=== PATIENT | female | born 1950 | race Caucasian/White ===

== ENCOUNTER 2017-12-01 08:00 | Outpatient (CLI) | payer MEDICARE, OTHER ==
[2017-12-01 12:38] LABS: BASOPHILS # (AUTO) 0.1 10^3/uL (0.0-0.1); BASOPHILS % (AUTO) 0.9 %; EOSINOPHILS # (AUTO) 0.1 10^3/uL (0.0-0.7); EOSINOPHILS % (AUTO) 1.1 %; HGB - HEMOGLOBIN 15.4 g/dL (12.0-16.0); LYMPHOCYTES # (AUTO) 2.8 10^3/uL (1.5-3.5); LYMPHOCYTES % (AUTO) 37.3 %; MEAN CORPUSCULAR HEMOGLOBIN 31.3 pg (27.0-31.0); MEAN PLATELET VOLUME 9.3 fL (7.9-10.8); MONOCYTES # (AUTO) 0.5 10^3/uL (0.0-1.0); NEUTROPHILS % (AUTO) 53.7 %; PLT - PLATELET COUNT 263 10^3/uL (130-450); RED CELL DISTRIBUTION WIDTH 13.5 % (12.0-15.0); WHITE BLOOD COUNT 7.4 x10^3/uL (4.8-10.8)
[2017-12-01 12:45] LABS: CALCIUM 9.9 mg/dL (8.5-10.3)
[2017-12-01 13:01] LABS: ALBUMIN 4.3 g/dL (3.2-5.5); ALBUMIN/GLOBULIN RATIO 1.4 (1.0-2.2); BILIRUBIN,TOTAL 0.3 mg/dL (0.2-1.0); CREATININE 0.6 mg/dL (0.4-1.0); TOTAL PROTEIN 7.4 g/dL (6.7-8.2)
[2017-12-01 13:28] LABS: HB2 TOTAL 16.2 g/dL; HEMOGLOBIN A1C 0.8 g/dL; HEMOGLOBIN A1C % 6.7 % (4.6-6.2)
== END 2017-12-01 08:01 | disposition home or self-care (01) ==
LOC: LAB.WCP 08:00
PROVIDERS: ATTEND Family Medicine
DX: E11.40 Type 2 diabetes mellitus with diabetic neuropathy, unspecified (principal); F31.9 Bipolar disorder, unspecified; E03.9 Hypothyroidism, unspecified
CPT/HCPCS: 36415; 80053; 82043; 83036; 84443; 85025

== ENCOUNTER 2017-12-15 12:58 | Outpatient (CLI) | payer MEDICARE, OTHER ==
--- NOTE | 2017-12-15 15:57 | XRAY Report ---
Procedure Date: 12/15/2017 Accession Number: [id number] / [id number] Procedure: XR - Lumbar Spine 2 View CPT Code: FULL RESULT: EXAM: Lumbar Spine 2 View DATE: 12/15/2017 1:36 PM CLINICAL HISTORY: LOWER BACK PAIN COMPARISON: None. TECHNIQUE: 2 views. FINDINGS: Alignment: There is S-shaped scoliosis. Mild thoracolumbar levoconvex scoliosis followed by severe lumbar dextroscoliosis centered about L3 where there is partial loss of height of L3 laterally on the left. Bones: Five [id number] lumbar vertebral bodies are present. No aggressive osseous lesions. Disks: There is multilevel degenerative disc disease which is most pronounced at L3-4, L4-5 and L5-S1. Facets: Facet arthropathy is most pronounced at L4 and L5 levels. Sacroiliac Joints: Limited by technique and positioning. Within these limits, unremarkable. Soft Tissues: Normal. The visualized bowel gas pattern is normal. IMPRESSION: Marked degenerative thoracolumbar S-shaped scoliosis. RADIA
== END 2017-12-15 12:59 | disposition home or self-care (01) ==
LOC: DI 12:58
PROVIDERS: ATTEND Family Medicine
DX: M41.85 Other forms of scoliosis, thoracolumbar region (principal); M51.37 Other intervertebral disc degeneration, lumbosacral region
CPT/HCPCS: 72100

== ENCOUNTER 2018-03-21 09:59 | Outpatient (CLI) | payer MEDICARE, OTHER ==
[2018-03-21 12:22] LABS: BASOPHILS % (AUTO) 0.8 %; EOSINOPHILS # (AUTO) 0.1 10^3/uL (0.0-0.7); EOSINOPHILS % (AUTO) 1.8 %; HGB - HEMOGLOBIN 15.2 g/dL (12.0-16.0); LYMPHOCYTES # (AUTO) 3.4 10^3/uL (1.5-3.5); LYMPHOCYTES % (AUTO) 57.7 %; MEAN CORPUSCULAR HEMOGLOBIN 32.1 pg (27.0-31.0); MEAN CORPUSCULAR HGB CONC 33.5 g/dL (32.0-36.0); MEAN PLATELET VOLUME 9.1 fL (7.9-10.8); MONOCYTES # (AUTO) 0.4 10^3/uL (0.0-1.0); MONOCYTES % (AUTO) 6.4 %; NEUTROPHILS # (AUTO) 1.9 10^3/uL (1.5-6.6); NEUTROPHILS % (AUTO) 33.3 %; PLT - PLATELET COUNT 251 10^3/uL (130-450); RED BLOOD COUNT 4.72 10^6/uL (4.20-5.40); RED CELL DISTRIBUTION WIDTH 14.1 % (12.0-15.0); WHITE BLOOD COUNT 5.8 x10^3/uL (4.8-10.8)
[2018-03-21 13:05] LABS: ALBUMIN 4.1 g/dL (3.2-5.5); ALBUMIN/GLOBULIN RATIO 1.4 (1.0-2.2); BILIRUBIN,TOTAL 0.6 mg/dL (0.2-1.0); CREATININE 0.7 mg/dL (0.4-1.0); TOTAL PROTEIN 7.1 g/dL (6.7-8.2)
[2018-03-21 13:09] LABS: THYROID STIMULATING HORMONE 1.11 uIU/mL (0.34-5.60)
[2018-03-21 13:15] LABS: CALCIUM 9.5 mg/dL (8.5-10.3)
== END 2018-03-21 10:00 | disposition home or self-care (01) ==
LOC: LAB.WCP 09:59
PROVIDERS: ATTEND Family Medicine
DX: R41.3 Other amnesia (principal)
CPT/HCPCS: 36415; 80053; 82607; 84443; 85025

== ENCOUNTER 2018-04-08 16:14 | Outpatient (CLI) | payer MEDICARE, OTHER ==
--- NOTE | 2018-04-08 19:44 | MRI Report ---
Reason: MEMORY LOSS Procedure Date: 04/08/2018 Accession Number: [id number] / [id number] Procedure: MRI - Brain W/O CPT Code: FULL RESULT: EXAM: MRI BRAIN WITHOUT CONTRAST EXAM DATE: 04/08/2018 04:54 PM. CLINICAL HISTORY: MEMORY LOSS. COMPARISON: None. TECHNIQUE: Multiplanar, multisequence T1-weighted and fluid-sensitive MR sequences of the brain were performed. Sequences optimized for routine evaluation. Other: None. IV Contrast: None. FINDINGS: Brain Volume: Normal for age. Parenchyma/Dura: No acute parenchymal hemorrhage, mass, or midline shift. There is mild bilateral ill-defined areas of T2/flair signal hyperintensity seen. There are no areas of restricted diffusion seen to suggest acute infarct. There are no abnormal areas of hemosiderin deposition. Ventricles/Cisterns: No hydrocephalus. No abnormal extra-axial fluid collection or hemorrhage. Orbits: Symmetric and unremarkable. Sella Turcica: The pituitary gland, cavernous sinuses, suprasellar cistern and optic chiasm are unremarkable. IAC: Symmetric and unremarkable. Vasculature: Normal signal flow void is seen in the major arterial structures at the skull base. Sinuses: No acute appearing sinus disease. Bones: No focal pathologic appearing marrow signal changes. Other: None. IMPRESSION: 1. No definite acute intracranial pathology seen; specifically, no acute infarct, acute intracranial hemorrhage, mass, hydrocephalus, or midline shift. 2. Mild white matter changes seen that are nonspecific, but may represent sequela of chronic small vessel ischemic disease. RADIA
== END 2018-04-08 16:15 | disposition home or self-care (01) ==
LOC: DI 16:14
PROVIDERS: ATTEND Family Medicine
DX: R41.3 Other amnesia (principal)
CPT/HCPCS: 70551

== ENCOUNTER 2018-06-01 08:00 | Outpatient (CLI) | payer MEDICARE, OTHER ==
[2018-06-01 19:13] LABS: CALCIUM 9.9 mg/dL (8.5-10.3); CREATININE 0.7 mg/dL (0.4-1.0)
[2018-06-01 19:25] LABS: HB2 TOTAL 16.6 g/dL; HEMOGLOBIN A1C 0.8 g/dL; HEMOGLOBIN A1C % 6.6 % (4.6-6.2)
== END 2018-06-01 23:59 | disposition home or self-care (01) ==
LOC: LAB.WCP 08:00
PROVIDERS: ATTEND Family Medicine
DX: E11.9 Type 2 diabetes mellitus without complications (principal)
CPT/HCPCS: 36415; 80048; 82043; 83036

== ENCOUNTER 2018-10-12 08:00 | Outpatient (CLI) | payer MEDICARE, OTHER ==
[2018-10-12 19:35] LABS: HB2 TOTAL 15.5 g/dL; HEMOGLOBIN A1C 0.73 g/dL; HEMOGLOBIN A1C % 6.5 % (4.6-6.2)
== END 2018-10-12 23:59 | disposition home or self-care (01) ==
LOC: LAB.WCP 08:00
PROVIDERS: ATTEND Family Medicine
DX: E11.9 Type 2 diabetes mellitus without complications (principal)
CPT/HCPCS: 36415; 83036

== ENCOUNTER 2019-07-04 11:45 | Outpatient (CLI) | payer MEDICARE, OTHER ==
[2019-07-04 18:41] LABS: HB2 TOTAL 14.4 g/dL; HEMOGLOBIN A1C 0.63 g/dL; HEMOGLOBIN A1C % 6.2 % (4.6-6.2)
== END 2019-07-04 23:59 | disposition home or self-care (01) ==
LOC: LAB.N 11:45
PROVIDERS: ATTEND Family Medicine
DX: E11.9 Type 2 diabetes mellitus without complications (principal); E03.9 Hypothyroidism, unspecified
CPT/HCPCS: 36415; 83036; 84443

== ENCOUNTER 2019-07-09 12:14 | Outpatient (CLI) | payer MEDICARE, OTHER | END 2019-07-09 12:15 | disposition home or self-care (01) | LOC: DI 12:14 | PROVIDERS: ATTEND Internal Medicine Hematology & Oncology | DX: Z53.9 Procedure and treatment not carried out, unspecified reason (principal) ==

== ENCOUNTER 2019-08-01 13:35 | Outpatient (CLI) | payer MEDICARE, OTHER ==
--- NOTE | 2019-08-01 14:26 | XRAY Report ---
Reason: RIGHT HIP JOINT PAIN Procedure Date: 08/01/2019 Accession Number: [id number] / [id number] Procedure: XRN - Hip w/Pelvis 2-3V RT CPT Code: Final Report FULL RESULT: EXAM: RIGHT HIP RADIOGRAPHY EXAM DATE: 08/01/2019 01:55 PM. CLINICAL HISTORY: Right hip joint pain. COMPARISON: None. TECHNIQUE: 2 views. FINDINGS: Minimal narrowing at the right hip joint space, mild osteophytic spurring of the cephalad aspect of the acetabulum. No fracture or subluxation. No dislocation. The imaged portion of the right sacroiliac joint appears within normal limits. Minimally imaged moderate degenerative changes of the lower lumbar spine. IMPRESSION: Mild degenerative changes at the right hip. RADIA
== END 2019-08-01 13:36 | disposition home or self-care (01) ==
LOC: DI.N 13:35
PROVIDERS: ATTEND Family Medicine
DX: M16.11 Unilateral primary osteoarthritis, right hip (principal)

== ENCOUNTER 2019-10-01 08:00 | Outpatient (CLI) | payer MEDICARE, OTHER | END 2019-10-01 23:59 | disposition home or self-care (01) | LOC: LAB.WCP 08:00 | PROVIDERS: ATTEND Family Medicine | DX: E53.8 Deficiency of other specified B group vitamins (principal) | CPT/HCPCS: 36415; 82607 ==

== ENCOUNTER 2019-10-23 11:29 | Outpatient (CLI) | payer MEDICARE, OTHER ==
--- NOTE | 2019-10-23 12:29 | SLEEP CARE CONSULTATION ---
Information from patient questionnaire entered by Maggie Ruiz. I have reviewed and concur with the information entered by Maggie Ruiz. This document represents the service I personally performed and the decisions made by me, Celia Rivas MD, [facility]. History of Present Illness Service Date and Time: 10/23/2019 1129 Reason for Visit: New patient, Previously diagnosed sleep apnea, sleep apnea on CPAP therapy (BIPAP) Chief Complaint: reports: Insomnia, Snoring, Observed pauses in breathing, Other (new Bipap machine) Duration of Symptoms: since 1994 Usual bedtime: 11 pm - 12 am Time it takes to fall asleep: 30 minutes Snores at night: Yes (if not using Bipap) Observed to quit breathing while asleep: Yes Sleeps alone due to snoring: No Number of times waking at night: 1 Reasons for waking at night: reports: Bathroom Toss, Turn, or Twitch while sleeping: No Recalls having dreams: No Usually gets out of bed at: 9:30 am Feels refreshed in the morning: Yes Morning headache: No Sleepy or fatigued during the day: Yes (sometimes) Ever fallen asleep while driving: No Takes day naps: Yes Dreams during day naps: No Prior sleep studies: Yes Year and Where: 16 years ago Additional HPI information: I had the pleasure of seeing Ms. Jenkins today regarding obstructive sleep apnea- hypopnea. As you know, she is a 68 year old lady who was diagnosed with the sleep-disordered breathing over 20 years ago in [place], [place]. The sleep study report is not available. She was prescribed with a BiPAP and has been using it regularly since. She is still on her original BiPAP machine. It is set somewhere around 12/4 cmH2O. She said Medicare paid for it. She continues to get supplies from [employer]. She wears a nasal mask. The credit card type memory card can no longer be downloaded. She finds the treatment very beneficial. She can hardly sleep without it. - Parasomnia Symptoms Ever been unable to move upon waking from sleep: No Ever felt weak in the knees when startled or emotional: No Bothered by creepy, crawly, restless sensations in legs: No Problems with memory or concentration: Yes Subjective Initial [place] Sleepiness Scale score: 6 (in 2019) Past Medical History Past Medical History: reports: Hypertension, Diabetes, Hypothyroidism, Anxiety, Asthma, Depression, Mood disorder, Other (bipolar, blood disorder, sleep apnea) Social History The patient's occupation is a Retired. Patient is and lives in [place]. Have you smoked in the past 12 months: No Cigarettes per day (20/pack): 20 Years of smokin Quit date: 2001 Smoking Pack Years: 20.0 Alcohol use: No Caffeine use: Yes Family History Family history of sleep disordered breathing: Yes Allergies and Home Medications Drug allergies reviewed: Yes Home medication list reviewed: Yes Review of Systems Weight gain over past 5 years: 10 Weight loss over past 5 years: 26 Cardiovascular: reports: leg or foot swelling Respiratory: reports: shortness of breath Gastrointestinal: denies: heartburn, difficulty swallowing, nausea, vomitting, diarrhea, abdominal pain, other Urinary: denies: incontinence, frequency, urgency, impotence, other Neurological: reports: gait or balance problems Psychiatric: reports: anxiety, depression, mood disorder, claustrophobia Ear/Nose/Throat: reports: dry mouth/throat, tonsillectomy Endocrine: reports: thyroid disease Musculoskeletal: reports: joint pain, back pain, muscle pain or cramping, mobility problems Immunologic: reports: allergies to food or environment Physical Exam Vital signs obtained and entered by: Detailed physical exam is deferred because the Coronavirus epidemic. Height: 5 ft 5 in Weight: 245 lb Body Mass Index: 40.7 BMI Classification: Morbidly Obese Neck circumference: 16.5 Impression and Plan IMPRESSION: 1. Obstructive Sleep Apnea-Hypopnea Syndrome, of unknown severity, as previously diagnosed over 20 years ago. The patient appears to have good treatment compliance. The current pressure setting appears effective and comfortable. The patient experiences improvement on the treatment. Narrow oropharynx and obesity are common predisposing factors for obstructive sleep apnea-hypopnea syndrome. Because the CPAP is now older than the useful life of 5 years, I will order the patient a new one. However, without a sleep study report and treatment compliance, we will need to repeat the in-laboratory polysomnography to confirm the diagnosis. A manual CPAP/BiPAP titration study will also be necessary because the patient would like to continue with BiPAP rather than CPAP (Medicare wants to see that CPAP is ineffective before covering the more expensive BiPAP). Plan: 1. Schedule an in-laboratory polysomnography. Because she cannot sleep without using her BiPAP, I will let her use it all the way up to the sleep study. 2. Attempt to lose weight. 3. Return for follow up after the sleep study. Visit Type: In Office Time Spent with Patient (minutes): 15 Provider Statement: I spent 100% of the Face to Face Visit with the patient with greater than 50% spent counseling the patient and coordination of care.
== END 2019-10-23 11:30 | disposition home or self-care (01) ==
LOC: SC 11:29
PROVIDERS: ATTEND Internal Medicine Pulmonary Disease
DX: G47.33 Obstructive sleep apnea (adult) (pediatric) (principal); E66.01 Morbid (severe) obesity due to excess calories; Z68.41 Body mass index [BMI] 40.0-44.9, adult
CPT/HCPCS: 99203; G0463; 99212

== ENCOUNTER 2019-11-11 19:36 | Outpatient (CLI) | payer MEDICARE, OTHER | END 2019-11-11 19:37 | disposition home or self-care (01) | LOC: SC 19:36 | PROVIDERS: ATTEND Internal Medicine Pulmonary Disease | DX: R09.02 Hypoxemia (principal) | CPT/HCPCS: 95810 ==

== ENCOUNTER 2019-11-20 10:51 | Emergency (ER) | payer MEDICARE, OTHER ==
[2019-11-20 12:46] LABS: BASOPHILS % (AUTO) 0.3 %; EOSINOPHILS # (AUTO) 0.4 10^3/uL (0.0-0.7); EOSINOPHILS % (AUTO) 3.6 %; HGB - HEMOGLOBIN 16.2 g/dL (12.0-16.0); LYMPHOCYTES # (AUTO) 1.7 10^3/uL (1.5-3.5); LYMPHOCYTES % (AUTO) 17.1 %; MEAN CORPUSCULAR HEMOGLOBIN 32.3 pg (27.0-31.0); MEAN CORPUSCULAR HGB CONC 33.4 g/dL (32.0-36.0); MEAN CORPUSCULAR VOLUME 96.6 fL (81.0-99.0); MEAN PLATELET VOLUME 10.5 fL (7.9-10.8); MONOCYTES % (AUTO) 10.3 %; NEUTROPHILS # (AUTO) 6.8 10^3/uL (1.5-6.6); NEUTROPHILS % (AUTO) 68.2 %; PLT - PLATELET COUNT 300 10^3/uL (130-450); RED BLOOD COUNT 5.02 10^6/uL (4.20-5.40); RED CELL DISTRIBUTION WIDTH 13.5 % (12.0-15.0)
[2019-11-20] MEDS ORDERED: SODIUM CHLORIDE 0.9% 1,000 ML IV STA (12:50)
[2019-11-20] MEDS ORDERED: ONDANSETRON 4 MG/2 ML VIAL IVP STA (12:50)
[2019-11-20 12:51] LABS: GLUCOSE, URINE (UA) NEGATIVE (NEGATIVE); KETONES,URINE (UA) NEGATIVE (NEGATIVE); LEUKOCYTE ESTERASE, URINE NEGATIVE (NEGATIVE); NITRITE,URINE NEGATIVE (NEGATIVE); OCCULT BLOOD,URINE NEGATIVE (NEGATIVE); PH,URINE 5.5 PH (5.0-7.5); PROTEIN,URINE NEGATIVE (NEGATIVE); UROBILINOGEN,URINE 0.2 (NORMAL) E.U./dL (NORMAL)
--- NOTE | 2019-11-20 12:52 | ED Physician Documentation ---
History of Present Illness - Stated complaint Stated Complaint: VOMITING, ABD PX - Chief complaint Chief Complaint: Abd Pain - History obtained from History obtained from: Patient - History of Present Illness Timing: Prior to arrival, How many hours ago (16) Pain level max: 8 Pain level now: 4 - Additonal information Additional information: 68-year-old female presents to the emergency department with a chief complaint of uncontrolled vomiting. Began about 8:00 last night. Patient reports that she vomited almost continuously for about 6 hours.She denies that she has had any diarrhea or fevers. She wonders if it was some food that she ate over the holiday weekend. She states that at the end of her vomiting episode she was having some blood tinged and green emesis.Surgical history includes tubal ligation only. Patient retains her gallbladder and appendix. She denies any chest pain or dyspnea. no dysuria Review of Systems Constitutional: denies: Fever, Chills Cardiac: denies: Chest pain / pressure, Palpitations, Calf pain Respiratory: denies: Dyspnea, Cough GI: reports: Abdominal Pain, Nausea, Vomiting. denies: Constipation, Diarrhea, Hematemesis, Bloody / black stool : denies: Dysuria Skin: denies: Rash, Lesions Neurologic: denies: Generalized weakness, Focal weakness PD PAST MEDICAL HISTORY - Past Medical History Cardiovascular: None Respiratory: Asthma Neuro: Tremors, Other Endocrine/Autoimmune: Type 2 diabetes GI: Chronic constipation : None HEENT: None Psych: Depression, Bipolar disorder, Other Musculoskeletal: Osteoarthritis, Chronic back pain, Other Derm: Other - Past Surgical History HEENT: Tonsil/Adenoidectomy - Present Medications Home Medications: Ambulatory Orders Medication Instructions Recorded Confirmed ARIPiprazole [Aripiprazole] 1 tab ORAL DAILY 02/08/18 07/23/19 Dulaglutide [Trulicity] 1 mg IM UD 02/08/18 07/23/19 Lamotrigine [Lamotrigine ER] 1 tab ORAL BID 02/08/18 07/23/19 Levothyroxine [Synthroid] 1 tab ORAL DAILY 02/08/18 07/23/19 Multivitamin [Multiple Vitamins] 1 tab ORAL DAILY 02/08/18 07/23/19 Naproxen Sodium [Aleve] 1 tab ORAL DAILY 02/08/18 07/23/19 OLANZapine [Olanzapine] 3 tab ORAL TID 02/08/18 07/23/19 Psyllium Husk [Fiber] 1 tab ORAL DAILY 02/08/18 07/23/19 QUEtiapine [SEROquel] 3 tab ORAL DAILY 02/08/18 07/23/19 Ramipril 1 tab ORAL DAILY 02/08/18 07/23/19 Simvastatin 1 tab ORAL DAILY 02/08/18 07/23/19 Temazepam [Restoril] 1 tab ORAL DAILY 02/08/18 07/23/19 metFORMIN [Glucophage] 2 tab ORAL BID 02/08/18 07/23/19 Cyanocobalamin (Vitamin B-12) 1 ml IM Q7D 07/23/19 07/23/19 [B-12] Ondansetron Odt [Zofran] 4 mg TL Q6H PRN #10 tablet 11/20/19 - Allergies Allergies/Adverse Reactions: Allergies Allergy/AdvReac Type Severity Reaction Status Date / Time acetaminophen [From Vicodin] Allergy Rash Verified 11/20/19 11:05 azidocillin Allergy Nausea Verified 11/20/19 11:05 hydrocodone [From Vicodin] Allergy Rash Verified 11/20/19 11:05 meperidine [From Demerol] Allergy Respiratory Verified 11/20/19 11:05 Penicillins Allergy Nausea Verified 11/20/19 11:05 Sulfa (Sulfonamide Allergy Hives Verified 11/20/19 11:05 Antibiotics) PD ED PE NORMAL - General General: Alert and oriented X 3, No acute distress, Well developed/nourished - HEENT HEENT: PERRL, EOMI - Cardiac Cardiac: RRR, No murmur - Respiratory Respiratory: No respiratory distress, Clear bilaterally - Abdomen Abdomen: Normal bowel sounds. No: Non tender (Mildly tender upper epigastrium. Negative Vasquez's, negative McBurney's. No rebound or guarding) - Derm Derm: Normal color, Warm and dry, No rash - Extremities Extremities: No: No deformity, Normal ROM s pain - Neuro Neuro: Alert and oriented X 3, lead python developer 2-12 intact, No motor deficit, No sensory deficit Eye Opening: To Voice Motor: Obeys Commands Verbal: Oriented GCS Score: 14 Results - Vitals Vitals: Vital Signs - 24 hr 11/20/19 11/20/19 11/20/19 11:05 11:08 13:14 Temperature 36.6 C 36.8 C Heart Rate 113 H 99 96 Respiratory 16 16 20 Rate Blood Pressure 134/83 H 134/87 H 118/68 O2 Saturation 93 95 95 Oxygen O2 Source Room air - Labs Labs: Laboratory Tests 11/20/19 11/20/19 11/20/19 12:30 12:30 12:43 WBC 10.0 RBC 5.02 Hgb 16.2 H Hct 48.5 H MCV 96.6 MCH 32.3 H MCHC 33.4 RDW 13.5 Plt Count 300 MPV 10.5 Neut # (Auto) 6.8 H Lymph # (Auto) 1.7 [place] # (Auto) 1.0 Eos # (Auto) 0.4 Baso # (Auto) 0.0 Absolute Nucleated RBC 0.00 Nucleated RBC % 0.0 Sodium 141 Potassium 4.3 Chloride 102 Carbon Dioxide 23 Anion Gap 16.0 H BUN 28 H Creatinine 1.4 H Estimated GFR (MDRD) 38 L Glucose 163 H Calcium 9.7 Total Bilirubin 0.4 AST 19 ALT 21 Alkaline Phosphatase 69 Total Protein 7.6 Albumin 4.5 Globulin 3.1 Albumin/Globulin Ratio 1.5 Lipase 48 Urine Color YELLOW Urine Clarity CLEAR Urine pH 5.5 Ur Specific Jack 1.015 Urine Protein NEGATIVE Urine Glucose (UA) NEGATIVE Urine Ketones NEGATIVE Urine Occult Blood NEGATIVE Urine Nitrite NEGATIVE Urine Bilirubin NEGATIVE Urine Urobilinogen 0.2 (NORMAL) Ur Leukocyte Esterase NEGATIVE Ur Microscopic Review NOT INDICATED Urine Culture Comments NOT INDICATED PD MEDICAL DECISION MAKING - ED course Complexity details: reviewed results, re-evaluated patient, considered differential, d/w patient ED course: 68-year-old female presents to the emergency department with chief complaint of acute onset uncontrolled vomiting that began last night that progressed to dry heaves this morning. - She had no focal abdominal pain no peritoneal signs and no guarding. - Full review of her labs indicate that she was mildly dehydrated with a creatinine 1.4 and elevated BUN. Her LFTs were normal and showed no signs of obstruction. - Patient was repleted with 1 L of IV fluids and given Compazine and Zofran. Following that she had good resolution of her nausea and was able to tolerate clear liquids. - Patient feels ready for discharge home. Will prescribe a limited amount of Z ofran.Improvement in her symptoms without fevers leukocytosis or focal abdominal pain I do not feel that emergent imaging is warranted at this time. Discussed at length emergent return precautions. Departure - Departure Disposition: 01 Home, Self Care Clinical Impression: Vomiting Qualifiers: Vomiting type: unspecified Vomiting Intractability: non-intractable Nausea presence: with nausea Qualified Code(s): R11.2 - Nausea with vomiting, unspecified Condition: Stable Instructions: Diet Clear Liquid Dc, ED Nausea Vomiting Follow-Up: BLAS GRACE MD [Primary Care Provider] - Prescriptions: Ondansetron Odt [Zofran] 4 mg TL Q6H PRN #10 tablet PRN Reason: Nausea / Vomiting Comments: Sarika glad that you are feeling better. Your labs today looked good and did not show signs of problems with your liver or gallbladder.They did show that you are probably a little bit dehydrated but I think this got better with the IV fluids we gave you. I have prescribed a little bit of Zofran to be used at home for the next few days to help with your nausea. If your symptoms worsen you develop suddenly severe, or different belly pain, especially if you have fevers, and please return immediately to the emergency department.
[2019-11-20 12:54] LABS: CLARITY,URINE CLEAR (CLEAR)
[2019-11-20 12:56] LABS: ALBUMIN 4.5 g/dL (3.2-5.5); ALBUMIN/GLOBULIN RATIO 1.5 (1.0-2.2); BILIRUBIN,TOTAL 0.4 mg/dL (0.2-1.0); CALCIUM 9.7 mg/dL (8.5-10.3); CREATININE 1.4 mg/dL (0.4-1.0); TOTAL PROTEIN 7.6 g/dL (6.7-8.2)
[2019-11-20 12:57] LABS: BILIRUBIN,URINE NEGATIVE (NEGATIVE); ICTOTEST,URINE NEGATIVE
[2019-11-20] MEDS ORDERED: PANTOPRAZOLE 40 MG VIAL IVP STA (13:43)
[2019-11-20] MEDS ORDERED: PROCHLORPERAZINE 10 MG/2 ML VIAL IVP STA (13:44)
[2019-11-20 15:16] VITALS: BP 112/57
== END 2019-11-20 15:27 | disposition home or self-care (01) ==
LOC: ED 10:51
DX: R11.2 Nausea with vomiting, unspecified (principal); E86.0 Dehydration; E11.9 Type 2 diabetes mellitus without complications; Z79.84 Long term (current) use of oral hypoglycemic drugs
CPT/HCPCS: 36415; 80053; 81001; 81003; 83690; 85025; 87086; 96361; 96374; 96375; 99283

== ENCOUNTER 2019-11-28 15:45 | Outpatient (CLI) | payer MEDICARE, OTHER ==
--- NOTE | 2019-11-28 17:31 | SLEEP CARE CONSULTATION ---
Information from patient questionnaire entered by Maggie Ruiz. I have reviewed and concur with the information entered by Maggie Ruiz. This document represents the service I personally performed and the decisions made by me, Livier Gardner, RN, MSN, [employer]. History of Present Illness Service Date and Time: 11/28/2019 1545 Initial [place] Sleepiness Scale score: 6 (in 2019) Current [place] Sleepiness Scale score: 1 Additional HPI information: ERIKA WILDER returns for follow up and results of the recently performed polysomnography. I explained the pathophysiology behind obstructive sleep apnea. Patient does not have sleep apnea and was advised how weight gain could increase the risk of developing sleep apnea in the future. I strongly encouraged the patient to continue to lose weight. Patient has moderate to loud snoring. Snoring can be reduced by weight loss. Weight loss is best achieved with diet consult. Patient instructed to contact PCP for referral. Snoring can also be treated with an oral appliance from a dent ist. Advised to check insurance coverage. In addition, an ENT evaluation can be do to see if other treatment is indicated. Patient counseled not drink alcohol less than 4 hours before bedtime as it can increase snoring and apnea. Patient does not drink alcohol. Patient was cautioned about risks of drowsy driving until sleepiness symptoms resolve. Patient denies drowsy driving. Sleep Study - Results Type of Sleep Study: Polysomnography Polysomnography/Home Sleep Study results: The quality of the study is good. 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 The sleep architecture was normal. Respiratory monitoring showed no significant sleep disordered breathing (AHI = 0.2). There was mild hypoxia (codi oxygen saturation of 87% with time spent with oxygen saturation at or below 88% of 5.9 minutes) due to low baseline oxygen saturation. The patient slept adequately in supine position (supine AHI = 0.9; non-supine = 0.00). Snore was moderate to loud in intensity. There was no significant periodic leg movement of sleep. Cardiac rhythm was normal sinus rhythm without significant arrhythmia. No abnormal behavior (parasomnia) observed during the night. Allergies and Home Medications Known drug allergies: Yes (see list ) Home medication list reviewed: No (started wellbutrin 450mg daily with benefit. ) Review of Systems Review of systems same as previous: No (ER for recurrent emesis / Follow up with oncology for blood disorder. ) Physical Exam Cuff size: large Heart Rate: 76 O2 Saturation: 94 Height: 5 ft 5 in Weight: 245 lb Body Mass Index: 40.7 BMI Classification: Morbidly Obese Impression and Plan 1. Snoring, moderate to severe, but no significant sleep disordered breathing. Patient advised that often weight loss will reduce snoring as well as apnea risk. She has lost about 100 pounds the last few years with plans on losing 45 more pounds to a goal of 200 pounds. She was diagnosed with sleep apnea over 20 years ago when about 350 pounds and has been using BiPAP since and needed to replace unit. This study shows that she no longer has apnea that is probably due to her significant weight loss. I showed her her sleep study hypnogram and there was only 1 apnea the whole night. She is concerned about her snoring bothering her spouse. Thus I advised her that an oral appliance can also be used for snoring. This would require a dental consultation. Patient cautioned not to use other online appliances as can cause bite issues. Patient to check with her dentist if he does oral appliances and agreed with plan. Patient is advised to check if insurance will cover. An ENT consult can also be helpful to determine if any other treatment is an option and would require a referral from her PCP. 2. Hypoxemia, mild, due to low baseline oxygen saturation of 90%. Her lowest oxygen saturation was 87% with 5.9 minutes of oxygen less than 89%. Further marc luation of hypoxemia is recommended so patient advised to follow up with her PCP. This study may be used to qualify the patient for home oxygen therapy at night if clinically indicated. * Follow up with PCP for further evaluation of hypoxemia. * Continue to lose weight * Follow up with dentist to see if oral appliance an option for snoring. * Avoid alcohol consumption near bedtime - (does not drink) * The patient is cautioned about driving until sleepiness is completely resolved. * Return for follow up as needed. Visit Type: In Office Provider Statement: I spent 100% of the Face to Face Visit with the patient with greater than 50% spent counseling the patient and coordination of care.
== END 2019-11-28 15:46 | disposition home or self-care (01) ==
LOC: SC 15:45
PROVIDERS: ATTEND Nurse Practitioner Family
DX: R06.83 Snoring (principal); E66.01 Morbid (severe) obesity due to excess calories; Z68.41 Body mass index [BMI] 40.0-44.9, adult; R09.02 Hypoxemia
CPT/HCPCS: 99215; G0463; 99212

== ENCOUNTER 2019-12-01 01:22 | Outpatient (CLI) | payer MEDICARE, OTHER | END 2019-12-01 01:23 | disposition EMS.NT | LOC: EMS 01:22 | PROVIDERS: ATTEND Surgery | DX: Z03.89 Encounter for observation for other suspected diseases and conditions ruled out (principal) ==

== ENCOUNTER 2020-05-07 08:07 | Outpatient (CLI) | payer MEDICARE, OTHER ==
--- NOTE | 2020-05-07 15:41 | XRAY Report ---
PROCEDURE: Ribs w/PA Chest LT INDICATIONS: L RIB PX FOLLOWING A FALL TECHNIQUE: 3 views of the left ribs were acquired, along with a single view chest. COMPARISON: None FINDINGS: Surgical changes and devices: None. Bones and chest wall: No fractures or dislocations. No suspicious bony lesions. Overlying soft tis sues appear unremarkable. Lungs and pleura: No pleural effusions or pneumothorax. Lungs appear clear. Mediastinum: Mediastinal contours appear normal. Heart size is normal. IMPRESSION: No evidence of left-sided rib fracture, no pneumothorax seen. Please note that a nondisplaced rib fra cture may not be initially detected by plain film imaging. Subsequent delayed plain films may allow d etection of a rib fracture by callus formation, if clinically warranted. Reviewed by: Man Rice MD on 05/07/2020 3:39 PM PST Approved by: Man Rice MD on 05/07/2020 3:39 PM PST Station ID: [id number]
== END 2020-05-07 23:59 | disposition home or self-care (01) ==
LOC: DI.N 08:07
PROVIDERS: ATTEND Physician Assistant Medical
DX: S20.212A Contusion of left front wall of thorax, initial encounter (principal)

== ENCOUNTER 2020-06-26 08:00 | Outpatient (CLI) | payer MEDICARE, OTHER ==
[2020-06-26 12:36] LABS: HEMOGLOBIN A1c% 5.8 % (4.27-6.07)
[2020-06-26 12:37] LABS: CREATININE,URINE 65.8 mg/dL; MICROALBUM/CREATININE RATIO,UR 68.4 ug/mg (<30.0); MICROALBUMIN,URINE 4.5 mg/dL (0-300.0)
[2020-06-26 12:45] LABS: BUN - BLOOD UREA NITROGEN 16 mg/dL (6-20); CALCIUM 9.9 mg/dL (8.5-10.3); CARBON DIOXIDE - CO2 29 mmol/L (21-32); CHLORIDE 102 mmol/L (101-111); CHOL/HDL RATIO 3.2 (<4.4); CHOLESTEROL 173 mg/dL; CREATININE 0.9 mg/dL (0.4-1.0); GLUCOSE 122 mg/dL (70-100); HDL CHOLESTEROL 54 mg/dL; LDL CHOLESTEROL,CALCULATED 84 mg/dL; LDL/HDL RATIO 1.6 (<4.4); VLDL CHOLESTEROL 35 mg/dL
== END 2020-06-26 23:59 | disposition home or self-care (01) ==
LOC: LAB.WCP 08:00
PROVIDERS: ATTEND Internal Medicine
DX: E11.9 Type 2 diabetes mellitus without complications (principal); E03.9 Hypothyroidism, unspecified
CPT/HCPCS: 36415; 80048; 80061; 82043; 82570; 83036; 83721; 84443

== ENCOUNTER 2020-07-04 10:40 | Outpatient (CLI) | payer MEDICARE, OTHER ==
--- NOTE | 2020-07-04 16:45 | DEXA Report ---
PROCEDURE: Dexa Spine and/or Hip INDICATIONS: POST MENOPAUSAL TECHNIQUE: Dual energy x-ray absorptiometry (DXA) was performed on a [employer]. Regions measur ed are the AP Spine, femoral neck, and if needed forearm. COMPARISON: None. FINDINGS: Lumbar Spine: Bone Mineral Density 1.037 g/cm/cm,T score 0.2, normal Left Hip: Bone Mineral Density 1.037 g/cm/cm,T score 0.2, normal Left Femoral Neck: Bone Mineral Density 0.921 g/cm/cm, T score -0.8, normal (T score greater or equal to -1.0: NORMAL) (T score from -1.1 to -2.4: OSTEOPENIA) (T score less than or equal to -2.5 to: OSTEOPOROSIS) Impression: Normal bone marrow density. Patients with diagnosis of osteoporosis or osteopenia should have regular bone mineral density assess ment. For those eligible for Medicare, routine testing is allowed once every 2 years. Testing frequ ency can be increased for patients who have rapidly progressing disease or for those who are receivin g medical therapy to restore bone mass. Reviewed by: Ladonna Romero MD, PhD on 07/04/2020 4:43 PM PST Approved by: Ladonna Romero MD, PhD on 07/04/2020 4:43 PM PST Station ID: [id number]
== END 2020-07-04 10:41 | disposition home or self-care (01) ==
LOC: DI 10:40
PROVIDERS: ATTEND Internal Medicine
DX: Z78.0 Asymptomatic menopausal state (principal)

== ENCOUNTER 2020-08-19 13:07 | Outpatient (CLI) | payer MEDICARE, OTHER ==
--- NOTE | 2020-08-20 09:37 | Mammography Report ---
BILATERAL DIGITAL SCREENING MAMMOGRAM: 08/19/2020 CLINICAL: Routine screening. Comparison is made to exams dated: 02/06/2016 mammogram and 06/26/2012 mammogram - [facility]. There are scattered fibroglandular elements in both breasts. There are benign calcifications in both breasts. No significant masses, calcifications, or other findings are seen in either breast. There has been no significant interval change. IMPRESSION: BENIGN There is no mammographic evidence of malignancy. A 1 year screening mammogram is recommended. This exam was interpreted at Station ID: [id number]. NOTE: For mammograms, a report in lay terms will be sent to the patient. Approximately 15% of breast malignancies will not be visualized mammographically. In the management of a palpable breast mass, a negative mammogram must not discourage biopsy of a clinically suspicious lesion. Electronically Signed By: Niranjan Sweet M.D. ddp/penrad:08/19/2020 16:41:23 ACR BI-RADS Category 2: Benign Finding(s) 3342F PARENCHYMAL PATTERN: (A) - The breast(s) demonstrate(s) scattered fibroglandular densities. BI-RADS CATEGORY: (2) - 2 RECOMMENDATION: (ANNUAL) - Recommend routine annual screening mammography. [id number] 1 year screening LATERALITY: (B)
== END 2020-08-19 13:08 | disposition home or self-care (01) ==
LOC: DI.N 13:07
PROVIDERS: ATTEND Internal Medicine
DX: Z12.31 Encounter for screening mammogram for malignant neoplasm of breast (principal)

== ENCOUNTER 2020-11-18 08:00 | Outpatient (CLI) | payer MEDICARE, OTHER ==
[2020-11-18 15:00] LABS: THYROID STIMULATING HORMONE 1.5 uIU/mL (0.34-5.60)
[2020-11-18 15:06] LABS: BUN - BLOOD UREA NITROGEN 22 mg/dL (6-20); CALCIUM 9.4 mg/dL (8.5-10.3); CARBON DIOXIDE - CO2 26 mmol/L (21-32); CHLORIDE 104 mmol/L (101-111); CHOL/HDL RATIO 3.2 (<4.4); CHOLESTEROL 155 mg/dL; GFR - MDRD 55 (>89); GLUCOSE 124 mg/dL (70-100); HDL CHOLESTEROL 49 mg/dL; LDL CHOLESTEROL,CALCULATED 84 mg/dL; LDL/HDL RATIO 1.7 (<4.4); POTASSIUM 4.1 mmol/L (3.5-5.0); SODIUM 139 mmol/L (135-145); TRIGLYCERIDES 109 mg/dL; VLDL CHOLESTEROL 22 mg/dL
[2020-11-18 16:53] LABS: ESTIMATED AVERAGE GLUCOSE 120 mg/dL (70-100); HEMOGLOBIN A1c% 5.8 % (4.27-6.07)
== END 2020-11-18 23:59 | disposition home or self-care (01) ==
LOC: LAB.WCP 08:00
PROVIDERS: ATTEND Internal Medicine
DX: E11.9 Type 2 diabetes mellitus without complications (principal)
CPT/HCPCS: 36415; 80048; 80061; 83036; 83721; 84443

== ENCOUNTER 2020-11-26 08:00 | Outpatient (CLI) | payer MEDICARE, OTHER | END 2020-11-26 23:59 | disposition home or self-care (01) | LOC: LAB.WCP 08:00 | PROVIDERS: ATTEND Physician Assistant Medical | DX: E53.8 Deficiency of other specified B group vitamins (principal) | CPT/HCPCS: 36415; 82607 ==

== ENCOUNTER 2021-01-30 08:00 | Outpatient (CLI) | payer MEDICARE, OTHER ==
[2021-01-30 18:42] LABS: BASOPHILS % (AUTO) 0.6 %; EOSINOPHILS # (AUTO) 0.1 10^3/uL (0.0-0.7); EOSINOPHILS % (AUTO) 0.9 %; HCT - HEMATOCRIT 47.9 % (37.0-47.0); LYMPHOCYTES # (AUTO) 3.6 10^3/uL (1.5-3.5); MEAN CORPUSCULAR HEMOGLOBIN 31.9 pg (27.0-31.0); MEAN CORPUSCULAR HGB CONC 31.3 g/dL (32.0-36.0); MEAN CORPUSCULAR VOLUME 101.9 fL (81.0-99.0); MONOCYTES # (AUTO) 0.5 10^3/uL (0.0-1.0); MONOCYTES % (AUTO) 7.6 %; NEUTROPHILS # (AUTO) 2.4 10^3/uL (1.5-6.6); NEUTROPHILS % (AUTO) 36.6 %; PLT - PLATELET COUNT 261 10^3/uL (130-450); RED CELL DISTRIBUTION WIDTH 12.4 % (12.0-15.0); WHITE BLOOD COUNT 6.6 x10^3/uL (4.8-10.8)
[2021-01-30 20:21] LABS: ALBUMIN/GLOBULIN RATIO 1.3 (1.0-2.2); ALKALINE PHOSPHATASE 66 IU/L (42-121); ALT ALANINE AMINOTRANSFERASE 19 IU/L (10-60); AST ASPARTATE AMINOTRANSFERASE 15 IU/L (10-42); BILIRUBIN,TOTAL 0.6 mg/dL (0.2-1.0); BUN - BLOOD UREA NITROGEN 21 mg/dL (6-20); CALCIUM 9.5 mg/dL (8.5-10.3); CARBON DIOXIDE - CO2 31 mmol/L (21-32); CHLORIDE 98 mmol/L (101-111); CREATININE 0.9 mg/dL (0.4-1.0); GFR - MDRD 62 (>89); GLUCOSE 85 mg/dL (70-100); POTASSIUM 4.3 mmol/L (3.5-5.0); SODIUM 139 mmol/L (135-145); TOTAL PROTEIN 7.2 g/dL (6.7-8.2); VALPROIC ACID (DEPAKOTE) 60.8 ug/mL
== END 2021-01-30 23:59 | disposition home or self-care (01) ==
LOC: LAB.WCP 08:00
PROVIDERS: ATTEND Nurse Practitioner Psychiatric/Mental Health
DX: F31.32 Bipolar disorder, current episode depressed, moderate (principal)
CPT/HCPCS: 36415; 80053; 80164; 85025

== ENCOUNTER 2021-03-16 08:00 | Outpatient (CLI) | payer MEDICARE, OTHER ==
[2021-03-16 12:42] LABS: BUN - BLOOD UREA NITROGEN 27 mg/dL (6-20); CALCIUM 9.6 mg/dL (8.5-10.3); CARBON DIOXIDE - CO2 26 mmol/L (21-32); CHLORIDE 104 mmol/L (101-111); CHOL/HDL RATIO 3.3 (<4.4); CHOLESTEROL 179 mg/dL; CREATININE 1.1 mg/dL (0.4-1.0); GFR - MDRD 49 (>89); GLUCOSE 115 mg/dL (70-100); HDL CHOLESTEROL 54 mg/dL; LDL CHOLESTEROL,CALCULATED 84 mg/dL; LDL/HDL RATIO 1.6 (<4.4); POTASSIUM 4.3 mmol/L (3.5-5.0); SODIUM 141 mmol/L (135-145); TRIGLYCERIDES 206 mg/dL; VLDL CHOLESTEROL 41 mg/dL
[2021-03-16 12:46] LABS: ESTIMATED AVERAGE GLUCOSE 140 mg/dL (70-100); HEMOGLOBIN A1c% 6.5 % (4.27-6.07)
== END 2021-03-16 23:59 | disposition home or self-care (01) ==
LOC: LAB.WCP 08:00
PROVIDERS: ATTEND Physician Assistant Medical
DX: E11.9 Type 2 diabetes mellitus without complications (principal); E53.8 Deficiency of other specified B group vitamins
CPT/HCPCS: 36415; 80048; 80061; 82607; 83036; 83721

== ENCOUNTER 2021-04-20 10:15 | Outpatient (CLI) | payer MEDICARE, OTHER ==
--- NOTE | 2021-04-20 12:51 | XRAY Report ---
PROCEDURE: Ribs 2 View LT INDICATIONS: L SIDED RIB PX TECHNIQUE: 3 views of the left ribs were acquired. COMPARISON: May 07, 2020 FINDINGS: Surgical changes and devices: None. Bones and chest wall: Minimal displaced fracture of the left eighth rib. No suspicious bony lesions. Overlying soft tissues appear unremarkable. Lungs and pleura: The visualized lung appears clear. No pleural effusions or pneumothorax are visib le. IMPRESSION: 1. Minimal displaced fracture of the left eighth rib. Reviewed by: Joe Broderick MD on 04/20/2021 12:49 PM PST Approved by: Joe Broderick MD on 04/20/2021 12:49 PM PST Station ID: [id number]
== END 2021-04-20 13:00 ==
LOC: DI.N 10:15
PROVIDERS: ATTEND Family Medicine
DX: S22.32XA Fracture of one rib, left side, initial encounter for closed fracture (principal)

== ENCOUNTER 2021-06-12 15:53 | Outpatient (CLI) | payer MEDICARE, OTHER ==
--- NOTE | 2021-06-12 16:58 | XRAY Report ---
PROCEDURE: Ribs w/PA Chest LT INDICATIONS: LEFT RIB PAIN TECHNIQUE: 3 views of the left ribs were acquired, along with a single view chest. COMPARISON: 04/20/2021 FINDINGS: Surgical changes and devices: None. Bones and chest wall: Slightly displaced fracture involving left posterior lateral eighth rib is seen unchanged from prior study. No new rib fracture is noted. No suspicious bony lesions. Overlying sof t tissues appear unremarkable. Lungs and pleura: Blunting of left costophrenic angle is seen suggestive of trace left pleural effusi on. Lungs appear clear. Mediastinum: Mediastinal contours appear normal. Heart size is normal. IMPRESSION: Minimally displaced left posterior lateral eighth rib fracture with trace left pleural effusion. No p neumothorax. No new rib fracture. Reviewed by: Rishabh Flaherty MD on 06/12/2021 4:57 PM PST Approved by: Rishabh Flaherty MD on 06/12/2021 4:57 PM PST Station ID: [id number]
== END 2021-06-12 23:59 | disposition home or self-care (01) ==
LOC: DI.N 15:53
PROVIDERS: ATTEND Physician Assistant
DX: S22.32XA Fracture of one rib, left side, initial encounter for closed fracture (principal)

== ENCOUNTER 2021-07-20 14:47 | Outpatient (CLI) | payer MEDICARE, OTHER ==
[2021-07-20 18:55] LABS: BASOPHILS # (AUTO) 0.1 10^3/uL (0.0-0.1); BASOPHILS % (AUTO) 0.7 %; EOSINOPHILS # (AUTO) 0.1 10^3/uL (0.0-0.7); EOSINOPHILS % (AUTO) 0.9 %; HCT - HEMATOCRIT 44.8 % (37.0-47.0); HGB - HEMOGLOBIN 14.4 g/dL (12.0-16.0); LYMPHOCYTES # (AUTO) 3.3 10^3/uL (1.5-3.5); LYMPHOCYTES % (AUTO) 49.9 %; MEAN CORPUSCULAR HEMOGLOBIN 32.1 pg (27.0-31.0); MEAN CORPUSCULAR HGB CONC 32.1 g/dL (32.0-36.0); MEAN CORPUSCULAR VOLUME 99.8 fL (81.0-99.0); MEAN PLATELET VOLUME 11.7 fL (7.9-10.8); MONOCYTES # (AUTO) 0.7 10^3/uL (0.0-1.0); MONOCYTES % (AUTO) 9.7 %; NEUTROPHILS # (AUTO) 2.6 10^3/uL (1.5-6.6); NEUTROPHILS % (AUTO) 38.5 %; PLT - PLATELET COUNT 229 10^3/uL (130-450); RED BLOOD COUNT 4.49 10^6/uL (4.20-5.40); RED CELL DISTRIBUTION WIDTH 12.3 % (12.0-15.0); WHITE BLOOD COUNT 6.7 x10^3/uL (4.8-10.8)
[2021-07-20 19:48] LABS: ALBUMIN 3.9 g/dL (3.2-5.5); ALBUMIN/GLOBULIN RATIO 1.3 (1.0-2.2); ALKALINE PHOSPHATASE 57 IU/L (42-121); ALT ALANINE AMINOTRANSFERASE 25 IU/L (10-60); AST ASPARTATE AMINOTRANSFERASE 22 IU/L (10-42); BILIRUBIN,TOTAL 0.4 mg/dL (0.2-1.0); BUN - BLOOD UREA NITROGEN 30 mg/dL (6-20); CALCIUM 9.4 mg/dL (8.5-10.3); CARBON DIOXIDE - CO2 27 mmol/L (21-32); CHLORIDE 98 mmol/L (101-111); CREATININE 1.1 mg/dL (0.4-1.0); GFR - MDRD 49 (>89); GLUCOSE 96 mg/dL (70-100); POTASSIUM 4.8 mmol/L (3.5-5.0); SODIUM 137 mmol/L (135-145); TOTAL PROTEIN 6.8 g/dL (6.7-8.2); VALPROIC ACID (DEPAKOTE) 67.7 ug/mL
== END 2021-07-20 14:48 | disposition home or self-care (01) ==
LOC: LAB.N 14:47
PROVIDERS: ATTEND Psychiatry & Neurology Psychiatry
DX: F31.9 Bipolar disorder, unspecified (principal); Z79.899 Other long term (current) drug therapy
CPT/HCPCS: 36415; 80053; 80164; 85025

== ENCOUNTER 2021-08-25 08:46 | Outpatient (CLI) | payer MEDICARE, OTHER ==
[2021-08-25 12:21] LABS: BASOPHILS # (AUTO) 0.1 10^3/uL (0.0-0.1); BASOPHILS % (AUTO) 0.7 %; EOSINOPHILS # (AUTO) 0.1 10^3/uL (0.0-0.7); EOSINOPHILS % (AUTO) 1.4 %; HCT - HEMATOCRIT 43.3 % (37.0-47.0); HGB - HEMOGLOBIN 14.1 g/dL (12.0-16.0); LYMPHOCYTES # (AUTO) 4.1 10^3/uL (1.5-3.5); LYMPHOCYTES % (AUTO) 57.8 %; MEAN CORPUSCULAR HGB CONC 32.6 g/dL (32.0-36.0); MEAN CORPUSCULAR VOLUME 98.4 fL (81.0-99.0); MEAN PLATELET VOLUME 11.5 fL (7.9-10.8); MONOCYTES # (AUTO) 0.5 10^3/uL (0.0-1.0); MONOCYTES % (AUTO) 7.4 %; NEUTROPHILS # (AUTO) 2.3 10^3/uL (1.5-6.6); NEUTROPHILS % (AUTO) 32.4 %; PLT - PLATELET COUNT 229 10^3/uL (130-450); RED CELL DISTRIBUTION WIDTH 12.4 % (12.0-15.0)
[2021-08-25 12:33] LABS: BUN - BLOOD UREA NITROGEN 27 mg/dL (6-20); CALCIUM 9.4 mg/dL (8.5-10.3); CARBON DIOXIDE - CO2 29 mmol/L (21-32); CHLORIDE 99 mmol/L (101-111); CHOL/HDL RATIO 2.9 (<4.4); CHOLESTEROL 158 mg/dL; CREATININE 1.2 mg/dL (0.4-1.0); GFR - MDRD 45 (>89); GLUCOSE 159 mg/dL (70-100); HDL CHOLESTEROL 54 mg/dL; LDL CHOLESTEROL,CALCULATED 79 mg/dL; LDL/HDL RATIO 1.5 (<4.4); POTASSIUM 4.5 mmol/L (3.5-5.0); SODIUM 139 mmol/L (135-145); TRIGLYCERIDES 126 mg/dL; VALPROIC ACID (DEPAKOTE) 58.8 ug/mL; VLDL CHOLESTEROL 25 mg/dL
[2021-08-25 12:46] LABS: THYROID STIMULATING HORMONE 3.53 uIU/mL (0.34-5.60)
[2021-08-25 13:42] LABS: ESTIMATED AVERAGE GLUCOSE 148 mg/dL (70-100); HEMOGLOBIN A1c% 6.8 % (4.27-6.07)
== END 2021-08-25 08:47 | disposition home or self-care (01) ==
LOC: LAB.N 08:46
PROVIDERS: ATTEND Internal Medicine
DX: I10 Essential (primary) hypertension (principal); E11.9 Type 2 diabetes mellitus without complications; F31.9 Bipolar disorder, unspecified; E53.8 Deficiency of other specified B group vitamins; E03.9 Hypothyroidism, unspecified
CPT/HCPCS: 36415; 80048; 80061; 80164; 82607; 83036; 83721; 84443; 85025

== ENCOUNTER 2021-11-03 12:51 | Outpatient (CLI) | payer MEDICARE, OTHER ==
--- NOTE | 2021-11-04 07:54 | Mammography Report ---
BILATERAL DIGITAL SCREENING MAMMOGRAM: 11/03/2021 CLINICAL: Routine screening. Comparison is made to exams dated: 08/19/2020 mammogram - [facility], 02/06/2016 mamm ogram, and 06/26/2012 mammogram - [facility]. There are scattered fibroglandular eleme nts in both breasts. There are benign calcifications in both breasts. No significant masses, calcifications, or other findings are seen in either breast. There has been no significant interval change. IMPRESSION: BENIGN There is no mammographic evidence of malignancy. A 1 year screening mammogram is recommended. This exam was interpreted at Station ID: [id number]. NOTE: For mammograms, a report in lay terms will be sent to the patient. Approximately 15% of breast malignancies will not be visualized mammographically. In the management of a palpable breast mass, a negative mammogram must not discourage biopsy of a clinically suspicious lesion. Electronically Signed By: Tin Bess M.D. ar/penrad:11/03/2021 15:47:27 ACR BI-RADS Category 2: Benign Finding(s) 3342F PARENCHYMAL PATTERN: (A) - The breast(s) demonstrate(s) scattered fibroglandular densities. BI-RADS CATEGORY: (2) - 2 RECOMMENDATION: (ANNUAL) - Recommend routine annual screening mammography. [id number] 1 year screening LATERALITY: (B)
== END 2021-11-03 12:52 | disposition home or self-care (01) ==
LOC: DI.N 12:51
PROVIDERS: ATTEND Internal Medicine
DX: Z12.31 Encounter for screening mammogram for malignant neoplasm of breast (principal)

== ENCOUNTER 2021-12-15 09:37 | Outpatient (CLI) | payer MEDICARE, OTHER ==
[2021-12-15 12:49] LABS: BASOPHILS % (AUTO) 0.7 %; EOSINOPHILS # (AUTO) 0.1 10^3/uL (0.0-0.7); HCT - HEMATOCRIT 44.4 % (37.0-47.0); HGB - HEMOGLOBIN 14.5 g/dL (12.0-16.0); LYMPHOCYTES # (AUTO) 3.6 10^3/uL (1.5-3.5); LYMPHOCYTES % (AUTO) 60.9 %; MEAN CORPUSCULAR HEMOGLOBIN 32.2 pg (27.0-31.0); MEAN CORPUSCULAR HGB CONC 32.7 g/dL (32.0-36.0); MEAN CORPUSCULAR VOLUME 98.7 fL (81.0-99.0); MEAN PLATELET VOLUME 11.7 fL (7.9-10.8); MONOCYTES # (AUTO) 0.5 10^3/uL (0.0-1.0); MONOCYTES % (AUTO) 8.4 %; NEUTROPHILS # (AUTO) 1.7 10^3/uL (1.5-6.6); NEUTROPHILS % (AUTO) 28.7 %; PLT - PLATELET COUNT 220 10^3/uL (130-450); RED CELL DISTRIBUTION WIDTH 12.5 % (12.0-15.0); WHITE BLOOD COUNT 5.9 x10^3/uL (4.8-10.8)
[2021-12-15 13:08] LABS: ALBUMIN 3.7 g/dL (3.2-5.5); ALBUMIN/GLOBULIN RATIO 1.1 (1.0-2.2); ALKALINE PHOSPHATASE 61 IU/L (42-121); ALT ALANINE AMINOTRANSFERASE 14 IU/L (10-60); AST ASPARTATE AMINOTRANSFERASE 10 IU/L (10-42); BILIRUBIN,TOTAL 0.5 mg/dL (0.2-1.0); BUN - BLOOD UREA NITROGEN 24 mg/dL (6-20); CALCIUM 9.3 mg/dL (8.5-10.3); CARBON DIOXIDE - CO2 28 mmol/L (21-32); CHLORIDE 98 mmol/L (101-111); CHOL/HDL RATIO 3.4 (<4.4); CHOLESTEROL 181 mg/dL; CREATININE 1.1 mg/dL (0.4-1.0); GFR - MDRD 49 (>89); GLUCOSE 166 mg/dL (70-100); HDL CHOLESTEROL 54 mg/dL; LDL CHOLESTEROL,CALCULATED 80 mg/dL; LDL/HDL RATIO 1.5 (<4.4); POTASSIUM 4.6 mmol/L (3.5-5.0); SODIUM 136 mmol/L (135-145); TOTAL PROTEIN 7.1 g/dL (6.7-8.2); TRIGLYCERIDES 235 mg/dL; VLDL CHOLESTEROL 47 mg/dL
[2021-12-15 13:20] LABS: THYROID STIMULATING HORMONE 1.92 uIU/mL (0.34-5.60)
[2021-12-15 13:54] LABS: ESTIMATED AVERAGE GLUCOSE 160 mg/dL (70-100); HEMOGLOBIN A1c% 7.2 % (4.27-6.07)
== END 2021-12-15 09:38 | disposition home or self-care (01) ==
LOC: LAB.N 09:37
PROVIDERS: ATTEND Internal Medicine
DX: I10 Essential (primary) hypertension (principal); E11.42 Type 2 diabetes mellitus with diabetic polyneuropathy; F31.9 Bipolar disorder, unspecified; E53.8 Deficiency of other specified B group vitamins; E03.9 Hypothyroidism, unspecified
CPT/HCPCS: 36415; 80053; 80061; 80164; 82607; 83036; 83721; 84443; 85025

== ENCOUNTER 2022-05-21 09:52 | Outpatient (CLI) | payer MEDICARE, OTHER ==
[2022-05-21 12:21] LABS: CALCIUM 9.4 mg/dL (8.5-10.3); CREATININE 1.1 mg/dL (0.4-1.0); POTASSIUM 4.6 mmol/L (3.5-5.0)
[2022-05-21 12:28] LABS: ESTIMATED AVERAGE GLUCOSE 177 mg/dL (70-100); HEMOGLOBIN A1c% 7.8 % (4.27-6.07)
== END 2022-05-21 09:53 | disposition home or self-care (01) ==
LOC: LAB.N 09:52
PROVIDERS: ATTEND Internal Medicine
DX: E11.42 Type 2 diabetes mellitus with diabetic polyneuropathy (principal)
CPT/HCPCS: 36415; 80048; 83036

== ENCOUNTER 2022-06-10 13:43 | Outpatient (CLI) | payer MEDICARE, OTHER ==
[2022-06-10 14:12] LABS: VALPROIC ACID (DEPAKOTE) 103.9 ug/mL
--- NOTE | 2022-06-10 16:10 | XRAY Report ---
PROCEDURE: Hand 3 View BILAT INDICATIONS: DJD OF HANDS TECHNIQUE: 3 views of the hand(s) acquired. COMPARISON: None FINDINGS: Bones: No fractures or dislocations. Focal degenerative change is seen involving the first carpometa carpal joint (left worse than right), with milder degenerative changes seen elsewhere. Mild bony erosions can be seen involving the ulnar aspects of the proximal fifth metacarpals. Soft tissues: No suspicious soft tissue calcifications. IMPRESSION: These imaging findings are most compatible with a combination of osteoarthritis and rheumatoid arthri tis. Reviewed by: Jonas Marinelli MD on 06/10/2022 3:08 PM [facility] Approved by: Jonas Marinelli MD on 06/10/2022 3:08 PM [facility] Station ID: [id number]
== END 2022-06-10 13:44 | disposition home or self-care (01) ==
LOC: DI 13:43
PROVIDERS: ATTEND Internal Medicine
DX: M18.0 Bilateral primary osteoarthritis of first carpometacarpal joints (principal); M19.041 Primary osteoarthritis, right hand; M19.042 Primary osteoarthritis, left hand; F31.9 Bipolar disorder, unspecified
CPT/HCPCS: 36415; 80164

== ENCOUNTER 2022-07-16 07:43 | Inpatient (IN) | payer MEDICARE, OTHER ==
--- NOTE | 2022-07-16 08:33 | XRAY Report ---
PROCEDURE: Ribs w/PA Chest LT INDICATIONS: trauma TECHNIQUE: 2 views of the left ribs were acquired, along with a single view chest. COMPARISON: 06/12/2021 FINDINGS: Surgical changes and devices: None. Bones and chest wall: There is a mildly displaced left anterolateral fifth rib fracture as well as a anterolateral sixth rib fracture and an anterior lateral eighth rib fracture. There are also multiple healing or healed left-sided rib fractures. No suspicious bony lesions. Overlying soft tissues appe ar unremarkable. Lungs and pleura: No pleural effusions or pneumothorax. Lungs appear clear. Question 1.2 cm left b asilar pulmonary nodule. Mediastinum: Mediastinal contours appear normal. Heart size is normal. IMPRESSION: 1. Acute fractures of the left fifth, sixth, and eighth ribs. 2. Multiple other healing or healed left rib fractures are also present. 3. Question 1.2 cm left basilar nodule. Comment: Consider CT chest for further evaluation of the possible nodule. Reviewed by: Sen Kim MD on 07/16/2022 8:31 AM PST Approved by: Sen Kim MD on 07/16/2022 8:31 AM PST Station ID: [id number]
--- NOTE | 2022-07-16 09:39 | ED Physician Documentation ---
PD HPI Fall - Stated complaint Stated Complaint: FALL, L SIDE RIB PX - Chief complaint Chief Complaint: Trauma Ch/Bk - History obtained from History obtained from: Patient, Family - History of Present Illness Mechanism of injury: Tripped Fall distance: Standing position Where injury occurred: Home Timing - onset: Last night Injury(ies) location: Chest Quality of pain: Pain, Throbbing Associated symptoms: No: LOC, AMS, Amnesia, Seizures, Ear drainage, Nasal drainage, Neck pain, Weakness, Paresthesias, Dyspnea, Nausea / vomiting, Hematemesis, Abdominal distension Symptoms improve with: Rest Worsens with: Movement, Palpation Contributing factors: No: Anticoagulated Similar symptoms before: Diagnosis (rib fracture) Recently seen: Not recently seen - Additional information Additional information: 71-year-old Pat Jenkins, a patient with a history of type II due to diabetes, asthma and thyroid disease was walking into her home last night when she tripped on her cane and fell onto her left side. She has pain to the left chest wall consistent with what she has had previously with rib fractures only worse. Last year she had a single rib fracture. She was successfully treated as an outpatient. She has a history of asthma and last had it an outbreak in the spring of last year. She denies any nausea and vomiting denies any recent illness. At rest the patient has severe pain and with movement breathing and palpation the pain is much worse. Review of Systems Constitutional: denies: Fever Eyes: denies: Decreased vision Ears: denies: Ear pain Nose: denies: Rhinorrhea / runny nose, Congestion Throat: denies: Sore throat Cardiac: reports: Chest pain / pressure. denies: Palpitations, Pedal edema, Calf pain Respiratory: denies: Dyspnea, Cough GI: denies: Abdominal Pain, Nausea, Vomiting, Constipation, Diarrhea : denies: Dysuria, Frequency Musculoskeletal: denies: Neck pain, Back pain, Extremity pain Neurologic: denies: Generalized weakness, Focal weakness, Numbness PD PAST MEDICAL HISTORY - Past Medical History Cardiovascular: None Respiratory: Asthma Neuro: Tremors, Other Endocrine/Autoimmune: Type 2 diabetes GI: Chronic constipation : None HEENT: None Psych: Depression, Bipolar disorder, Other Musculoskeletal: Osteoarthritis, Chronic back pain, Other Derm: Other - Past Surgical History HEENT: Tonsil/Adenoidectomy - Present Medications Home Medications: Ambulatory Orders Medication Instructions Recorded Confirmed Dulaglutide [Memeity] 3 mg IM Q7D 02/08/18 07/16/22 Levothyroxine [Synthroid] 1 tab ORAL DAILY 02/08/18 07/16/22 Multivitamin [Multiple Vitamins] 1 tab ORAL DAILY 02/08/18 07/16/22 Simvastatin 1 tab ORAL DAILY 02/08/18 07/16/22 metFORMIN [Glucophage] 2 tab ORAL DAILY 02/08/18 07/16/22 Divalproradha Dumont [Jesus Dumont] 4 - 5 tab PO BID 03/23/21 07/16/22 Buspirone HCl 1 tab PO BID 07/16/22 07/16/22 Meloxicam [Mobic] 1 tab PO DAILY 07/16/22 07/16/22 Quetiapine Fumarate [Seroquel] 3 tab PO HS 07/16/22 07/16/22 Ramipril [Altace] 1 cap PO DAILY 07/16/22 07/16/22 atenoloL [Tenormin] 1 tab PO DAILY 07/16/22 07/16/22 buPROPion HCL [Bupropion Xl] 1 tab PO DAILY 07/16/22 07/16/22 buPROPion HCL [Wellbutrin Xl] 1 tab PO DAILY 07/16/22 07/16/22 - Allergies Allergies/Adverse Reactions: Allergies Allergy/AdvReac Type Severity Reaction Status Date / Time acetaminophen [From Vicodin] Allergy Rash Verified 03/24/20 13:06 azidocillin Allergy Nausea Verified 03/24/20 13:06 hydrocodone [From Vicodin] Allergy Rash Verified 03/24/20 13:06 meperidine [From Demerol] Allergy Respiratory Verified 03/24/20 13:06 Penicillins Allergy Nausea Verified 03/24/20 13:06 Sulfa (Sulfonamide Allergy Hives Verified 03/24/20 13:06 Antibiotics) erythromycin base AdvReac Nausea Verified 07/16/22 12:51 PD ED PE NORMAL - Vitals Vital signs reviewed: Yes (hypertensive mild ) - General General: Alert and oriented X 3, No acute distress, Well developed/nourished - HEENT HEENT: Atraumatic, PERRL, EOMI - Neck Neck: Supple, no meningeal sign, No bony TTP - Cardiac Cardiac: RRR, No murmur - Respiratory Respiratory: No respiratory distress, Clear bilaterally, Other (point tenderness and tenderness to the left lower rib cage brings tears) - Abdomen Abdomen: Normal bowel sounds, Soft, Non tender, Non distended, No organomegaly - Back Back: No CVA TTP, No spinal TTP - Derm Derm: Normal color, Warm and dry, No rash - Extremities Extremities: No deformity, No edema - Neuro Neuro: Alert and oriented X 3, table keeper 2-12 intact, No motor deficit, No sensory deficit, Normal speech Eye Opening: Spontaneous Motor: Obeys Commands Verbal: Oriented GCS Score: 15 - Psych Psych: Normal mood, Normal affect Results - Vitals Vitals: Vital Signs - 24 hr 07/16/22 07/16/22 07:52 10:06 Temperature 37.6 C Heart Rate 68 56 L Respiratory 16 16 Rate Blood Pressure 135/70 H 156/89 H O2 Saturation 98 95 Oxygen O2 Source Room air - Labs Labs: Laboratory Tests 07/16/22 07/16/22 07/16/22 09:52 09:52 09:52 WBC 8.2 RBC 4.69 Hgb 14.9 Hct 46.3 MCV 98.7 MCH 31.8 H MCHC 32.2 RDW 12.7 Plt Count 221 MPV 11.3 H Neut # (Auto) 4.2 Lymph # (Auto) 3.1 [place] # (Auto) 0.8 Eos # (Auto) 0.0 Baso # (Auto) 0.1 Absolute Nucleated RBC 0.00 Nucleated RBC % 0.0 Sodium 136 Potassium 4.1 Chloride 97 L Carbon Dioxide 29 Anion Gap 10.0 BUN 23 H Creatinine 1.0 Estimated GFR (MDRD) 55 L Glucose 141 H Calcium 9.4 Total Bilirubin 0.4 AST 13 ALT 14 Alkaline Phosphatase 56 Total Protein 7.3 Albumin 3.9 Globulin 3.4 Albumin/Globulin Ratio 1.1 Lipase 44 Urine Color YELLOW Urine Clarity CLEAR Urine pH 5.5 Ur Specific [place] 1.025 Urine Protein NEGATIVE Urine Glucose (UA) NEGATIVE Urine Ketones NEGATIVE Urine Occult Blood NEGATIVE Urine Nitrite NEGATIVE Urine Bilirubin NEGATIVE Urine Urobilinogen 0.2 (NORMAL) Ur Leukocyte Esterase NEGATIVE Ur Microscopic Review NOT INDICATED Urine Culture Comments NOT INDICATED - Rads (name of study) Chest with ribs Radiology: Prelim report reviewed (Impression: 1. Acute fractures of the left fifth, sixth, and eighth ribs. Multiple other healing or healed left rib fractures are also present. Question 1.2 cm left basilar nodule), EMP read indepedently, See rad report PD Medical Decision Making - ED course Complexity details: considered differential, d/w patient Departure - Departure Disposition: 66 [facility] DC/Xfer Clinical Impression: Ribs, multiple fractures Qualifiers: Encounter type: initial encounter Fracture type: closed Laterality: left Qualified Code(s): S22.42XA - Multiple fractures of ribs, left side, initial encounter for closed fracture Condition: Stable Discharge Date/Time: 07/16/22 11:35
[2022-07-16] MEDS ORDERED: KETOROLAC 30 MG/ML VIAL IVP STA (09:42)
[2022-07-16 10:06] LABS: BASOPHILS # (AUTO) 0.1 10^3/uL (0.0-0.1); BASOPHILS % (AUTO) 0.7 %; EOSINOPHILS % (AUTO) 0.4 %; HCT - HEMATOCRIT 46.3 % (37.0-47.0); HGB - HEMOGLOBIN 14.9 g/dL (12.0-16.0); LYMPHOCYTES # (AUTO) 3.1 10^3/uL (1.5-3.5); LYMPHOCYTES % (AUTO) 38.1 %; MEAN CORPUSCULAR HEMOGLOBIN 31.8 pg (27.0-31.0); MEAN CORPUSCULAR HGB CONC 32.2 g/dL (32.0-36.0); MEAN CORPUSCULAR VOLUME 98.7 fL (81.0-99.0); MEAN PLATELET VOLUME 11.3 fL (7.9-10.8); MONOCYTES # (AUTO) 0.8 10^3/uL (0.0-1.0); MONOCYTES % (AUTO) 9.2 %; NEUTROPHILS # (AUTO) 4.2 10^3/uL (1.5-6.6); NEUTROPHILS % (AUTO) 51.1 %; PLT - PLATELET COUNT 221 10^3/uL (130-450); RED BLOOD COUNT 4.69 10^6/uL (4.20-5.40); RED CELL DISTRIBUTION WIDTH 12.7 % (12.0-15.0); WHITE BLOOD COUNT 8.2 x10^3/uL (4.8-10.8)
[2022-07-16 10:09] LABS: BILIRUBIN,URINE NEGATIVE (NEGATIVE); GLUCOSE, URINE (UA) NEGATIVE (NEGATIVE); KETONES,URINE (UA) NEGATIVE (NEGATIVE); LEUKOCYTE ESTERASE, URINE NEGATIVE (NEGATIVE); NITRITE,URINE NEGATIVE (NEGATIVE); OCCULT BLOOD,URINE NEGATIVE (NEGATIVE); PH,URINE 5.5 PH (5.0-7.5); PROTEIN,URINE NEGATIVE (NEGATIVE); UROBILINOGEN,URINE 0.2 (NORMAL) E.U./dL (NORMAL)
[2022-07-16 10:10] LABS: CLARITY,URINE CLEAR (CLEAR)
[2022-07-16 10:19] LABS: ALBUMIN 3.9 g/dL (3.2-5.5); ALBUMIN/GLOBULIN RATIO 1.1 (1.0-2.2); BILIRUBIN,TOTAL 0.4 mg/dL (0.2-1.0); CALCIUM 9.4 mg/dL (8.5-10.3); POTASSIUM 4.1 mmol/L (3.5-5.0); TOTAL PROTEIN 7.3 g/dL (6.7-8.2)
[2022-07-16] MEDS ORDERED: GABAPENTIN 300 MG CAPSULE PO PRN (10:53)
[2022-07-16] MEDS ORDERED: SODIUM CHLORIDE FLUSH 0.9% 10 ML SYRINGE IVP PRN (10:53)
[2022-07-16] MEDS ORDERED: ONDANSETRON ODT 4 MG TABLET TL PRN (10:53)
[2022-07-16] MEDS ORDERED: oxyCODONE 5 MG TABLET PO PRN (10:53)
[2022-07-16] MEDS ORDERED: LIDOCAINE PATCH 5% TOP STA (10:53)
--- NOTE | 2022-07-16 11:00 | CT Report ---
PROCEDURE: CHEST WO INDICATIONS: L rib fractures and pulmonary nodule TECHNIQUE: Noncontrast 1mm axial images were acquired from the pulmonary apices to the posterior costophrenic an gles. Axial 5 mm soft tissue kernel reconstructions were performed as well as 8 mm axial MIP and cor onal and sagittal 5 mm reformations. For radiation dose reduction, the following was used: automate d exposure control, adjustment of mA and/or kV according to patient size. COMPARISON: Chest and rib films from today FINDINGS: Image quality: Excellent. Lungs and pleura: Patchy bibasilar atelectasis. There is no left pulmonary nodule noted. The appearan ce is likely secondary to the appearance of the atelectatic lung.. No pleural effusions or pneumotho rax. Central and peripheral airways are patent and normal in caliber. Mediastinum: Heart size is normal. No pericardial effusion. No mediastinal adenopathy by size crit eria. Thoracic aorta and central pulmonary arteries are normal in size. Esophagus is normal in ricardo pérez. No hiatal hernia. Bones and chest wall: Old fractures of the left seventh, eighth, and ninth ribs. Acute lateral fifth and sixth rib fractures. No suspicious bony lesions. No vertebral body compression fractures. No a xillary or supraclavicular adenopathy by size criteria. The thyroid is normal in size and there are no incidental findings. Abdomen: Visualized upper abdominal solid organs and bowel loops appear normal in the absence of con trast. IMPRESSION: 1. Acute fractures of the left fifth and sixth ribs. 2. Old fractures of the left seventh, eighth, ninth ribs. 3. Patchy bibasilar atelectasis. 4. No suspicious pulmonary nodule. CLINICAL RECOMMENDATION STATEMENTS: In patients <35 years with an ITN detected on CT, MRI, or extrathyroidal ultrasound, the Committee re commends further evaluation with dedicated thyroid ultrasound if the nodule is "e1 cm and has no susp icious imaging features, and if the patient has normal life expectancy. In patients "e35 years with an ITN detected on CT, MRI, or extrathyroidal ultrasound, the Committee r ecommends further evaluation with dedicated thyroid ultrasound if the nodule is "e1.5 cm and has no s uspicious imaging features, and if the patient has normal life expectancy. (ACR, 2014) Reviewed by: Sen Kim MD on 07/16/2022 10:58 AM PST Approved by: Sen Kim MD on 07/16/2022 10:58 AM PST Station ID: [id number]
--- NOTE | 2022-07-16 11:06 | HISTORY & PHYSICAL EXAMINATION ---
Chief Complaint - Chief Complaint Chief Complaint: Ground level fall with left chest pain History of Present Illness - Admitted From Admitted From:: ED - History Obtained From Records Reviewed: Yes History obtained from: Patient Exam Limitations: None - History of Present Illness HPI Comment/Other: Pat tripped while using her cane last night and fell to the floor onto her left side. She had immediate left chest wall pain. Her was able to help her into a chair where she rested for awhile, then she moved to a sofa. She went to bed with some difficulty and awakened this morning with worsened left chest wall pain and mild SOB with breathing. She came to the ED and was found to have 3 left rib fractures without image evidence of a pneumothorax. Pat denies abdominal pain. Her left knee is a little sore but otherwise she is back to her baseline mobility. History - Past Medical History Cardiovascular: reports: None Respiratory: reports: Asthma Neuro: reports: Tremors, Other Endocrine/Autoimmune: reports: Type 2 diabetes GI: reports: Chronic constipation : reports: None HEENT: reports: None Psych: reports: Depression, Bipolar disorder, Other Musculoskeletal: reports: Osteoarthritis, Chronic back pain, Other Derm: reports: Other MRSA Hx?: No - Past Surgical History HEENT: reports: Tonsil/Adenoidectomy Meds/Allgy - Home Medications Home Medications: Ambulatory Orders Medication Instructions Recorded Confirmed Dulaglutide [Trulicity] 1 mg IM UD 02/08/18 03/23/21 RX: Levothyroxine [Synthroid] 1 tab ORAL DAILY 02/08/18 03/23/21 RX: Multivitamin [Multiple 1 tab ORAL DAILY 02/08/18 03/23/21 Vitamins] RX: OLANZapine [Olanzapine] 3 tab ORAL TID 02/08/18 03/23/21 RX: QUEtiapine [SEROquel] 3 tab ORAL DAILY 02/08/18 03/23/21 RX: Ramipril 1 tab ORAL DAILY 02/08/18 03/23/21 RX: Simvastatin 1 tab ORAL DAILY 02/08/18 03/23/21 RX: metFORMIN [Glucophage] 2 tab ORAL BID 02/08/18 03/23/[address] [Jesus Dumont] 125 mg PO 03/23/21 - Allergies Allergies/Adverse Reactions: Allergies Allergy/AdvReac Type Severity Reaction Status Date / Time acetaminophen [From Vicodin] Allergy Rash Verified 03/24/20 13:06 azidocillin Allergy Nausea Verified 03/24/20 13:06 hydrocodone [From Vicodin] Allergy Rash Verified 03/24/20 13:06 meperidine [From Demerol] Allergy Respiratory Verified 03/24/20 13:06 Penicillins Allergy Nausea Verified 03/24/20 13:06 Sulfa (Sulfonamide Allergy Hives Verified 03/24/20 13:06 Antibiotics) Review of Systems - Respiratory Respiratory: reports: Other (Left chest wall pain with breathing) Exam - Vital Signs Reviewed Vital Signs: Yes Vital Signs: Vital Signs x48h Temp Pulse Resp BP Pulse Ox 07/16/22 10:06 56 L 16 156/89 H 95 07/16/22 07:52 99.7 F 68 16 135/70 H 98 - Physical Exam General Appearance: positive: No acute distress, Alert, Mild distress Eyes Bilateral: positive: Normal inspection, PERRL ENT: positive: Pharynx nml Neck: positive: Nml inspection, No JVD, Trachea midline Respiratory: positive: Breath sounds nml (Left chest wall tenderness to palpation) Cardiovascular: positive: Regular rate & rhythm Abdomen: positive: Non-tender, No organomegaly, Nml bowel sounds, No distention Back: positive: Nml inspection Skin: positive: Color nml, No rash, Warm Extremities: positive: Non-tender, Full ROM, Nml appearance Neurologic/Psychiatric: positive: Oriented x3, CN's nml (2-12) Conclusion/Plan - Lab Results Fish Bones: 07/16/22 09:52 07/16/22 09:52 - Other Other Results/Comments: Images: CXR - Fracture of left 5th, 6th, 8th ribs CT Chest - Fracture of left 5th, 6th, 8th ribs; No evidence of splenic injury, pneumothorax (All images reviewed by me - GUANACO) Assessment: 1) GLF with fracture of 3 left ribs 2) Diabetes 3) Obesity Plan: 1) Rib fracture protocol 2) Resume normal medications 3) Physical therapy Ze Prabhakar MD General Surgery Service 07/16/22
[2022-07-16] MEDS: DEXTROSE 5%-0.45% NACL 1,000 ML IV SCH (11:50)
--- NOTE | 2022-07-16 12:41 | PHARMACY PROGRESS NOTE ---
- Best Possible Medication History Admit Date and Time: 07/16/22 1053 Processed by: Pharmacy Medication History completed: Yes Patient Interview: Completed Secondary Source(s): Spouse/Significant other, Pharmacy records As the person ultimately responsible for medication therapy, providers are able to order a medication from an existing home medication list in [facility] via the "Reconcile Routine" prior to Confirmation of that medication by data support specialist. Such practice is discouraged except when the physician, in their clinical judgment, deems that a medical need exists for a medication without regard to previous use.
[2022-07-16] MEDS ORDERED: IBUPROFEN 800 MG TABLET PO SCH (14:00)
[2022-07-16] MEDS: ACETAMINOPHEN 500 MG TABLET PO SCH ×2 (14:18→21:28)
[2022-07-16] MEDS: IBUPROFEN 600 MG TABLET PO SCH ×3 (14:18→19:58)
[2022-07-16] MEDS ORDERED: KETOROLAC 30 MG/ML VIAL IVP SCH (15:00)
[2022-07-16] MEDS: HYDROmorphone 0.5 MG/0.5 ML SYRINGE IVP PRN ×2 (15:09→19:16)
[2022-07-16] MEDS: SODIUM CHLORIDE FLUSH 0.9% 10 ML SYRINGE IVP SCH ×2 (17:02→21:32)
[2022-07-16] MEDS: oxyCODONE 5 MG TABLET PO PRN (17:43)
[2022-07-16] MEDS ORDERED: HYDROmorphone 0.5 MG/0.5 ML SYRINGE IVP PRN ×2 (19:31→19:34)
[2022-07-16] MEDS: QUEtiapine 100 MG TABLET PO SCH (21:05)
[2022-07-16] MEDS: busPIRone 5 MG TABLET PO SCH (21:06)
[2022-07-16] MEDS: DIVALPROEX DR 125 MG TABLET PO SCH (21:06)
[2022-07-16] MEDS: ATORVASTATIN 10 MG TABLET PO SCH (21:06)
[2022-07-16] MEDS: DIVALPROEX DR 250 MG TABLET PO SCH (21:07)
[2022-07-16] MEDS: LIDOCAINE PATCH 5% TOP SCH (21:07)
[2022-07-16] MEDS: HEPARIN 5,000 UNIT/ML VIAL SUBQ SCH (21:08)
[2022-07-16] MEDS: GABAPENTIN 300 MG CAPSULE PO SCH (21:28)
[2022-07-16] MEDS ORDERED: GABAPENTIN 300 MG CAPSULE PO SCH (22:00)
[2022-07-16] MEDS ORDERED: ACETAMINOPHEN 500 MG TABLET PO SCH (22:00)
[2022-07-16] MEDS: KETOROLAC 30 MG/ML VIAL IVP SCH (23:08)
[2022-07-17] MEDS: oxyCODONE 5 MG TABLET PO PRN (03:06)
[2022-07-17] MEDS: KETOROLAC 30 MG/ML VIAL IVP SCH (04:51)
[2022-07-17] MEDS: ACETAMINOPHEN 500 MG TABLET PO SCH ×3 (06:28→21:26)
[2022-07-17] MEDS: GABAPENTIN 300 MG CAPSULE PO SCH ×3 (06:29→21:26)
[2022-07-17] MEDS: MULTIVITAMIN W/MINERALS TABLET PO SCH (08:57)
[2022-07-17] MEDS: buPROPion XL 150 MG TABLET PO SCH (08:58)
[2022-07-17] MEDS: DIVALPROEX DR 250 MG TABLET PO SCH ×2 (08:59→21:27)
[2022-07-17] MEDS ORDERED: NON FORMULARY MED (Bupropion Hcl [Wellbutrin Xl] 300 MG Tab.Er.24h) PO SCH (09:00)
[2022-07-17] MEDS ORDERED: MELOXICAM 7.5 MG TABLET PO SCH ×2 (09:00→21:00)
[2022-07-17] MEDS ORDERED: DIVALPROEX DR 125 MG TABLET PO SCH (09:00)
[2022-07-17] MEDS: lisinopriL 20 MG TABLET PO SCH (09:00)
[2022-07-17] MEDS ORDERED: atenoloL 25 MG TABLET PO SCH (09:00)
[2022-07-17] MEDS: LEVOTHYROXINE 88 MCG TABLET PO SCH (09:02)
[2022-07-17] MEDS: busPIRone 5 MG TABLET PO SCH ×2 (09:02→21:26)
[2022-07-17] MEDS: metFORMIN 500 MG TABLET PO SCH (09:04)
[2022-07-17] MEDS: HEPARIN 5,000 UNIT/ML VIAL SUBQ SCH ×2 (09:05→21:27)
[2022-07-17] MEDS: LIDOCAINE PATCH 5% TOP SCH ×2 (09:11→21:27)
[2022-07-17] MEDS: DEXTROSE 5%-0.45% NACL 1,000 ML IV SCH (09:15)
[2022-07-17] MEDS: SODIUM CHLORIDE FLUSH 0.9% 10 ML SYRINGE IVP SCH ×2 (09:16→16:19)
--- NOTE | 2022-07-17 09:17 | PROVIDER PROGRESS NOTE ---
Progress Note General Surgery Morning Rounds Note Hospital Day # 2 Assessment: 1) Ground level fall with acute fracture of two left ribs (2 other ribs show findings c/w prior fracture) - pain under reasonable control without evidence of pulmonary compromise 2) Peripheral neuropathy 3) Obesity 4) Diabetes 5) History of hypertension - On Atenolol and bradycardic with SBP in 90's overnight. Plan: 1) Increase dose of Oxycodone to 10 mg PO Q6 hr prn 2) Stop Ketorolac and start Ibuprofen 600 mg PO TID with meals and QHS 3) Start Pepcid for gastric protection 4) Colace daily and Miralax prn 5) Ambulate and in chair often daily 6) Hold Atenolol 7) Continue VTEP 8) Home Health referral 9) Discharge home either later today or tomorrow depending upon pain control <><><><><><><><><><><><><><> S: Still with left chest wall pain but no SOB. Tolerating a diet; Passing flatus but no stool yet. O2 sats dropped last nigh along with bradycardia thought due to use of Atenolol. Now back to normal O: VSS; AAO; Lungs clear with good effort; Heart NSR; Tender left rib cage; Abdomen soft; IS to 1700 witout difficulty Pain Level: Moderate Labs: Glu 156 this morning Ze Prabhakar MD General Surgery 07/17/22
[2022-07-17] MEDS ORDERED: oxyCODONE 5 MG TABLET PO PRN (09:23)
[2022-07-17] MEDS ORDERED: polyethylene glycoL 3350 17 GM PACKET PO PRN (09:23)
[2022-07-17 10:50] LABS: BASOPHILS % (AUTO) 0.5 %; EOSINOPHILS # (AUTO) 0.1 10^3/uL (0.0-0.7); HCT - HEMATOCRIT 40.4 % (37.0-47.0); HGB - HEMOGLOBIN 12.8 g/dL (12.0-16.0); LYMPHOCYTES # (AUTO) 3.8 10^3/uL (1.5-3.5); LYMPHOCYTES % (AUTO) 63.3 %; MEAN CORPUSCULAR HGB CONC 31.7 g/dL (32.0-36.0); MEAN PLATELET VOLUME 11.5 fL (7.9-10.8); MONOCYTES # (AUTO) 0.5 10^3/uL (0.0-1.0); MONOCYTES % (AUTO) 8.1 %; NEUTROPHILS # (AUTO) 1.6 10^3/uL (1.5-6.6); NEUTROPHILS % (AUTO) 26.8 %; PLT - PLATELET COUNT 172 10^3/uL (130-450); RED CELL DISTRIBUTION WIDTH 12.6 % (12.0-15.0)
[2022-07-17 11:02] LABS: ALBUMIN 3.3 g/dL (3.2-5.5); ALBUMIN/GLOBULIN RATIO 1.3 (1.0-2.2); BILIRUBIN,TOTAL 0.6 mg/dL (0.2-1.0); CALCIUM 8.5 mg/dL (8.5-10.3); CREATININE 1.2 mg/dL (0.4-1.0); POTASSIUM 4.1 mmol/L (3.5-5.0); TOTAL PROTEIN 5.8 g/dL (6.7-8.2)
[2022-07-17] MEDS: IBUPROFEN 600 MG TABLET PO SCH ×2 (13:43→18:02)
[2022-07-17] MEDS: QUEtiapine 100 MG TABLET PO SCH (21:25)
[2022-07-17] MEDS: DIVALPROEX DR 125 MG TABLET PO SCH (21:26)
[2022-07-17] MEDS: ATORVASTATIN 10 MG TABLET PO SCH (21:26)
[2022-07-17] MEDS: FAMOTIDINE 20 MG TABLET PO SCH (21:26)
[2022-07-18] MEDS: IBUPROFEN 600 MG TABLET PO SCH ×3 (00:46→11:30)
[2022-07-18] MEDS: SODIUM CHLORIDE FLUSH 0.9% 10 ML SYRINGE IVP SCH ×2 (01:02→09:20)
[2022-07-18] MEDS: GABAPENTIN 300 MG CAPSULE PO SCH (06:31)
[2022-07-18] MEDS: ACETAMINOPHEN 500 MG TABLET PO SCH (06:31)
--- NOTE | 2022-07-18 08:39 | PROVIDER PROGRESS NOTE ---
Progress Note General Surgery Morning Rounds Note Hospital Day # 3 Assessment: 1) Multiple left rib fractures from GLF - Pain under good control with oral medication. No pulmonary issues at this time 2) Diabetes - serum glucose in good control 3) Hypertension - normal BP off Atenolol 4) Peripheral neuropathy 5) Obesity Plan: 1) Discharge to home on multimodality pain strategy (Ibuprofen; Tylenol; Gabapentin; Oxycodone) 2) Hold Atenolol until re-evaluation by PCP 3) Encourage IS and ambulation daily 4) FU PCP in 7-10 days or sooner as needed <><><><><><><><><><><><><><> S: Slept well; Still complains of left chest wall discomfort which is to be expected. I informed her that the discomfort will eventually resolve and will be well controlled with our multimodality pain strategy as an out-patient. Eating well. Passing flatus but no stool yet O: VSS; AAO; Cooperative; Lungs clear bilaterally - IS to 1,700. Heart NSR; Left chest wall tenderness to palpation - no flail. No crepitus; Abdomen soft Pain Level: Moderate Labs: 07/17/22: Hct 40.4; Hgb 12.8; K 4.1; Glu 132; Cr 1.2 Ze Prabhakar MD General Surgery Service
--- NOTE | 2022-07-18 08:51 | DISCHARGE SUMMARY ---
"Discharge Summary Admit Date: 07/16/22 Discharge Date: 07/18/22 Discharging Provider: Ze Prabhkaar MD Code Status: Attempt Resuscitation Condition at Discharge: Good Discharge Disposition: 01 Home, Self Care - DIAGNOSES Admission Diagnoses: 1) Multiple left rib fractures due to ground level fall 2) Diabetes 3) Hypertension 4) Obesity 5) Peripheral neuropathy Discharge Diagnoses with Status of Each Condition: 1) Multiple left rib fractures due to ground level fall - pain under control with oral medications; No pulmonary issues at this time 2) Diabetes - Serum glucose controlled with reduced card diet and metformin 3) Hypertension - Atenolol stopped due to bradycardia and low blood pressure. Needs to be assessed at first out-patient visit 4) Obesity - Chronic illness 5) Peripheral neuropathy - Chronic illness - HPI History of Present Illness: Pat tripped while using her cane last night and fell to the floor onto her left side. She had immediate left chest wall pain. Her was able to help her into a chair where she rested for awhile, then she moved to a sofa. She went to bed with some difficulty and awakened this morning with worsened left chest wall pain and mild SOB with breathing. She came to the ED and was found to have 3 left rib fractures without image evidence of a pneumothorax. Pat denies abdominal pain. Her left knee is a little sore but otherwise she is back to her baseline mobility. 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 Admission CT identified the old and acute rib fractures. There was no pneumothorax or evidence of splenic injury. She was managed in the ICU for 24 hours per rib-fracture protocol and then transferred to the floor where she was ambulatory, tolerating a diet, and her left rib pain controlled with oral medication (Tylenol, Ibuprofen, Gabapentin, Oxycodone). Miralax and colace were offered for constipation. - ALLERGIES Allergies/Adverse Reactions: Allergies Allergy/AdvReac Type Severity Reaction Status Date / Time acetaminophen [From Vicodin] Allergy Rash Verified 03/24/20 13:06 azidocillin Allergy Nausea Verified 03/24/20 13:06 hydrocodone [From Vicodin] Allergy Rash Verified 03/24/20 13:06 meperidine [From Demerol] Allergy Respiratory Verified 03/24/20 13:06 Penicillins Allergy Nausea Verified 03/24/20 13:06 Sulfa (Sulfonamide Allergy Hives Verified 03/24/20 13:06 Antibiotics) erythromycin base AdvReac Nausea Verified 07/16/22 12:51 - MEDICATIONS Home Medications: Ambulatory Orders Medication Instructions Recorded Confirmed Dulaglutide [Trulicity] 3 mg IM Q7D 02/08/18 07/16/22 Levothyroxine [Synthroid] 1 tab ORAL DAILY 02/08/18 07/16/22 Multivitamin [Multiple Vitamins] 1 tab ORAL DAILY 02/08/18 07/16/22 Simvastatin 1 tab ORAL DAILY 02/08/18 07/16/22 metFORMIN [Glucophage] 2 tab ORAL DAILY 02/08/18 07/16/22 Divalproex [Jesus Dumont] 4 - 5 tab PO BID 03/23/21 07/16/22 Buspirone HCl 1 tab PO BID 07/16/22 07/16/22 Meloxicam [Mobic] 1 tab PO DAILY 07/16/22 07/16/22 Quetiapine Fumarate [Seroquel] 3 tab PO HS 07/16/22 07/16/22 Ramipril [Altace] 1 cap PO DAILY 07/16/22 07/16/22 buPROPion HCL [Bupropion Xl] 1 tab PO DAILY 07/16/22 07/16/22 buPROPion HCL [Wellbutrin Xl] 1 tab PO DAILY 07/16/22 07/16/22 Acetaminophen [Tylenol] 1,000 mg PO Q8HR 10 Days #30 tab 07/18/22 Docusate Sodium 100Mg Capsule 100 mg PO DAILY 30 Days #30 cap 07/18/22 [Colace 100Mg Capsule] Famotidine [Pepcid] 20 mg PO BID 30 Days #60 tab 07/18/22 Gabapentin [Neurontin] 300 mg PO Q8HR 10 Days #30 cap 07/18/22 oxyCODONE [Roxicodone] 10 mg PO Q4HR PRN 5 Days #10 tab 07/18/22 polyethylene glycoL 3350 [Miralax] 17 gm PO DAILY PRN 7 Days #7 packet 07/18/22 - PHYSICAL EXAM AT DISCHARGE General Appearance: positive: No acute distress, Alert Eyes Bilateral: positive: Normal inspection, PERRL ENT: positive: ENT inspection nml, Pharynx nml Neck: positive: Nml inspection Respiratory: positive: No respiratory distress, Other (Mild left chest wall tenderness to palpation) Peripheral Pulses: positive: 2+ Abdomen: positive: Non-tender, Nml bowel sounds, No distention Skin: positive: Color nml, No rash, Warm Extremities: positive: Non-tender, Full ROM Neurologic/Psychiatric: positive: Oriented x3 - LABS Result Diagrams: 07/17/22 10:32 07/17/22 10:32 - DIAGNOSTIC IMAGING Diagnostic Imaging Results Comments: CT scan of the chest and upper abdomen identified acute fractures of ribs 5,6 and old fractures of ribs 7,8,9. The spleen appeared normal. - QUALITY (Female Hip Fx Only) Was patient sent home on osteoporosis medication?: No - FOLLOW UP Follow Up: Follow up with her PCP in 7-10 days data services developer will call her tomorrow"
[2022-07-18] MEDS ORDERED: DOCUSATE SODIUM 100 MG CAPSULE PO SCH (09:00)
--- NOTE | 2022-07-18 09:13 | Discharge Plan ---
Discharge Plan Problem Reviewed?: Yes Disposition: Home, Self Care Condition: Good Prescriptions: oxyCODONE [Roxicodone] 10 mg PO Q4HR PRN 5 Days #10 tab PRN Reason: Pain 5-7 Gabapentin [Neurontin] 300 mg PO Q8HR 10 Days #30 cap Acetaminophen [Tylenol] 1,000 mg PO Q8HR 10 Days #30 tab Docusate Sodium 100Mg Capsule [Colace 100Mg Capsule] 100 mg PO DAILY 30 Days #30 cap polyethylene glycoL 3350 [Miralax] 17 gm PO DAILY PRN 7 Days #7 packet PRN Reason: Bowel Protocol Famotidine [Pepcid] 20 mg PO BID 30 Days #60 tab No Smoking: If you smoke, Please STOP! Call for help. Follow-up with: Carlos Watkins MD [Primary Care Provider] -
[2022-07-18] MEDS: LIDOCAINE PATCH 5% TOP SCH (09:16)
[2022-07-18] MEDS: HEPARIN 5,000 UNIT/ML VIAL SUBQ SCH (09:17)
[2022-07-18] MEDS: buPROPion XL 150 MG TABLET PO SCH (09:18)
[2022-07-18] MEDS: busPIRone 5 MG TABLET PO SCH (09:19)
[2022-07-18] MEDS: LEVOTHYROXINE 88 MCG TABLET PO SCH (09:19)
[2022-07-18] MEDS: FAMOTIDINE 20 MG TABLET PO SCH (09:19)
[2022-07-18] MEDS: lisinopriL 20 MG TABLET PO SCH (09:19)
[2022-07-18] MEDS: DIVALPROEX DR 250 MG TABLET PO SCH (09:19)
[2022-07-18] MEDS: metFORMIN 500 MG TABLET PO SCH (09:19)
[2022-07-18] MEDS: MULTIVITAMIN W/MINERALS TABLET PO SCH (09:19)
[2022-07-18] MEDS ORDERED: DULAGLUTIDE 1.5 MG/0.5 ML PO SCH (11:00)
[2022-07-18 11:41] VITALS: BP 117/74
== END 2022-07-18 13:05 | disposition home or self-care (01) | DRG 184 ==
LOC: ED 07:43 → UNDOADMOB 10:53 → ICU 10:53 → INTOOBSV 16:05 → OBSVTOIN 16:05 → MS2 07-17 13:32 → ICU 07-17 13:32 → OBSVTOIN 07-17 16:05 → MS2 07-17 16:05 → ICU 07-17 16:05 → UNDODISIN 07-18 13:05
PROVIDERS: ADMIT Surgery; ATTEND Surgery
DX: S22.42XA Multiple fractures of ribs, left side, initial encounter for closed fracture (principal); Z68.41 Body mass index [BMI] 40.0-44.9, adult; W18.31XA Fall on same level due to stepping on an object, initial encounter; E11.9 Type 2 diabetes mellitus without complications; E11.42 Type 2 diabetes mellitus with diabetic polyneuropathy; I10 Essential (primary) hypertension; E66.9 Obesity, unspecified; J45.909 Unspecified asthma, uncomplicated; F31.9 Bipolar disorder, unspecified; J98.11 Atelectasis; F41.9 Anxiety disorder, unspecified; R00.1 Bradycardia, unspecified; Y92.009 Unspecified place in unspecified non-institutional (private) residence as the place of occurrence of the external cause; Z79.85 Long-term (current) use of injectable non-insulin antidiabetic drugs; Z79.84 Long term (current) use of oral hypoglycemic drugs
CPT/HCPCS: 36415; 71101; 71250; 80053; 81003; 83690; 85025; 87150; 96361; 96372; 96374; 96375; 96376; 97162; 97530; 99284; 99285; A9270; G0378; J1170; 81001; 87086

== ENCOUNTER 2022-08-20 10:35 | Outpatient (CLI) | payer MEDICARE, OTHER ==
--- NOTE | 2022-08-20 13:31 | DEXA Report ---
PROCEDURE: Dexa Spine and/or Hip INDICATIONS: POST MENOPAUSAL TECHNIQUE: Dual energy x-ray absorptiometry (DXA) was performed on a [employer] System. Regions measur ed are the AP Spine, femoral neck, and if needed forearm. Forearm was obtained secondary to inability for evaluation of spinal images. COMPARISON: None. FINDINGS: Left Femoral Neck: Bone Mineral Density 0.745 g/cm/cm, T score -2.1, compared to -0.8 Left Hip: Bone Mineral Density 0.767 g/cm/cm,T score -1.9, compared to 0.2 Left forearm: Bone Mineral Density 1.011 g/cm/cm, T score 1.5, compared to 1.2 (T score greater or equal to -1.0: NORMAL) (T score from -1.1 to -2.4: OSTEOPENIA) (T score less than or equal to -2.5 to: OSTEOPOROSIS) Impression: Moderate to severe osteopenia left femoral neck and hip, progressive compared to prior exam. Patients with diagnosis of osteoporosis or osteopenia should have regular bone mineral density assess ment. For those eligible for Medicare, routine testing is allowed once every 2 years. Testing frequ ency can be increased for patients who have rapidly progressing disease or for those who are receivin g medical therapy to restore bone mass. Reviewed by: Charo Amos MD on 08/20/2022 1:29 PM PDT Approved by: Charo Amos MD on 08/20/2022 1:29 PM PDT Station ID: [id number]
== END 2022-08-20 10:36 | disposition home or self-care (01) ==
LOC: DI 10:35
PROVIDERS: ATTEND Physician Assistant
DX: S22.42XD Multiple fractures of ribs, left side, subsequent encounter for fracture with routine healing (principal); Z78.0 Asymptomatic menopausal state; M85.89 Other specified disorders of bone density and structure, multiple sites

== ENCOUNTER 2022-08-27 14:47 | Outpatient (CLI) | payer MEDICARE, OTHER ==
--- NOTE | 2022-08-27 15:41 | XRAY Report ---
PROCEDURE: Shoulder 3 View LT INDICATIONS: PAIN IN LEFT SHOULDER TECHNIQUE: 3 views of the shoulder were acquired. COMPARISON: None. FINDINGS: Bones: Distal clavicle resection versus chronic subluxation of the acromioclavicular joint. Bony def ormity of the humeral head along the lateral margin, most consistent with prior dislocation. Soft tissues: No suspicious soft tissue calcifications. IMPRESSION: Suspect Hill-Sachs deformity of the humeral head, which would be seen in the setting of prior disloca tion. Distal clavicle resection versus chronic subluxation/injury of the acromioclavicular clavicular joint . Reviewed by: Blayne Milton on 08/27/2022 3:40 PM PDT Approved by: Blayne Milton on 08/27/2022 3:40 PM PDT Station ID: [id number]
--- NOTE | 2022-08-27 15:42 | XRAY Report ---
PROCEDURE: Humerus LT INDICATIONS: PAIN IN LEFT SHOULDER TECHNIQUE: 3 views of the humerus were acquired. COMPARISON: None. FINDINGS: Bones: No fractures or dislocations. No suspicious bony lesions. Soft tissues: No suspicious soft tissue calcifications or masses. IMPRESSION: No acute bony abnormality. Reviewed by: Blayne Milton on 08/27/2022 3:40 PM PDT Approved by: Blayne Milton on 08/27/2022 3:40 PM PDT Station ID: [id number]
== END 2022-08-27 14:48 | disposition home or self-care (01) ==
LOC: DI 14:47
PROVIDERS: ATTEND Internal Medicine
DX: M25.512 Pain in left shoulder (principal); R93.6 Abnormal findings on diagnostic imaging of limbs

== ENCOUNTER 2022-09-07 09:41 | Outpatient (CLI) | payer MEDICARE, OTHER ==
[2022-09-07 11:55] LABS: BASOPHILS # (AUTO) 0.1 10^3/uL (0.0-0.1); BASOPHILS % (AUTO) 0.8 %; EOSINOPHILS # (AUTO) 0.1 10^3/uL (0.0-0.7); EOSINOPHILS % (AUTO) 1.1 %; HCT - HEMATOCRIT 44.1 % (37.0-47.0); HGB - HEMOGLOBIN 14.3 g/dL (12.0-16.0); LYMPHOCYTES % (AUTO) 59.9 %; MEAN CORPUSCULAR HEMOGLOBIN 32.6 pg (27.0-31.0); MEAN CORPUSCULAR HGB CONC 32.4 g/dL (32.0-36.0); MEAN CORPUSCULAR VOLUME 100.7 fL (81.0-99.0); MEAN PLATELET VOLUME 11.6 fL (7.9-10.8); MONOCYTES # (AUTO) 0.5 10^3/uL (0.0-1.0); MONOCYTES % (AUTO) 7.5 %; NEUTROPHILS % (AUTO) 30.2 %; PLT - PLATELET COUNT 222 10^3/uL (130-450); RED BLOOD COUNT 4.38 10^6/uL (4.20-5.40); RED CELL DISTRIBUTION WIDTH 12.8 % (12.0-15.0); WHITE BLOOD COUNT 6.6 x10^3/uL (4.8-10.8)
[2022-09-07 12:20] LABS: ALBUMIN 3.5 g/dL (3.2-5.5); ALBUMIN/GLOBULIN RATIO 1.1 (1.0-2.2); ALKALINE PHOSPHATASE 50 IU/L (42-121); ALT ALANINE AMINOTRANSFERASE 14 IU/L (10-60); AST ASPARTATE AMINOTRANSFERASE 12 IU/L (10-42); BILIRUBIN,TOTAL 0.4 mg/dL (0.2-1.0); BUN - BLOOD UREA NITROGEN 27 mg/dL (6-20); CALCIUM 9.5 mg/dL (8.5-10.3); CARBON DIOXIDE - CO2 30 mmol/L (21-32); CHLORIDE 104 mmol/L (101-111); CHOL/HDL RATIO 2.9 (<4.4); CHOLESTEROL 158 mg/dL; GFR - MDRD 55 (>89); GLUCOSE 150 mg/dL (70-100); HDL CHOLESTEROL 54 mg/dL; LDL CHOLESTEROL,CALCULATED 76 mg/dL; LDL/HDL RATIO 1.4 (<4.4); SODIUM 142 mmol/L (135-145); TOTAL PROTEIN 6.6 g/dL (6.7-8.2); TRIGLYCERIDES 138 mg/dL; VALPROIC ACID (DEPAKOTE) 66.1 ug/mL; VLDL CHOLESTEROL 28 mg/dL
== END 2022-09-07 09:42 | disposition home or self-care (01) ==
LOC: LAB.N 09:41
PROVIDERS: ATTEND Psychiatry & Neurology Psychiatry
DX: F31.9 Bipolar disorder, unspecified (principal); Z51.81 Encounter for therapeutic drug level monitoring; Z79.899 Other long term (current) drug therapy
CPT/HCPCS: 36415; 80053; 80061; 80164; 83721; 85025

== ENCOUNTER 2022-10-05 09:40 | Outpatient (CLI) | payer MEDICARE, OTHER ==
--- NOTE | 2022-10-05 13:43 | XRAY Report ---
PROCEDURE: Elbow 3 View LT INDICATIONS: ELBOW JOINT PAIN. TECHNIQUE: 3 views of the elbow were acquired. COMPARISON: None. FINDINGS: Bones: No fractures or dislocations. No suspicious bony lesions. Soft tissues: No effusion. No suspicious soft tissue calcifications or masses. IMPRESSION: No acute bony abnormality. If pain persists with conservative management, consider repeat radiographs in 10-14 days or cross-sectional imaging. Reviewed by: Sen Kim MD on 10/05/2022 1:41 PM PDT Approved by: Sen Kim MD on 10/05/2022 1:41 PM PDT Station ID: [id number]
== END 2022-10-05 09:41 | disposition home or self-care (01) ==
LOC: DI.N 09:40
PROVIDERS: ATTEND Internal Medicine
DX: M25.522 Pain in left elbow (principal)

== ENCOUNTER 2023-01-13 12:27 | Outpatient (CLI) | payer MEDICARE, OTHER ==
--- NOTE | 2023-01-14 16:28 | Mammography Report ---
BILATERAL DIGITAL SCREENING MAMMOGRAM: 01/13/2023 CLINICAL: Routine screening. Comparison is made to exams dated: 11/03/2021 mammogram, 08/19/2020 mammogram - [facility], 02/06/2016 mammogram, and 06/26/2012 mammogram - [facility]. There are scattered areas of fibroglandular density in both breasts (category b / 25%-50% glandular t issue). There are benign calcifications in both breasts. No significant masses, calcifications, or other findings are seen in either breast. There has been no significant interval change. IMPRESSION: BENIGN There is no mammographic evidence of malignancy. A 1 year screening mammogram is recommended. Based on the Tyrer Cuzick model (a risk assessment model) the patients lifetime risk is 3.4% and her 10 year risk is 2.1%. According to the ACR, ACS, and NCCN guidelines, an annual breast MRI exam kumar g with mammogram is recommended if the patients lifetime risk is 20% or greater. This exam was interpreted at Station ID: [id number]. NOTE: For mammograms, a report in lay terms will be sent to the patient. Approximately 15% of breast malignancies will not be visualized mammographically. In the management of a palpable breast mass, a negative mammogram must not discourage biopsy of a clinically suspicious lesion. Electronically Signed By: Grisel rosenbaum/ole:01/13/2023 17:44:46 letter sent: No_Letter ACR BI-RADS Category 2: Benign Finding(s) 3342F PARENCHYMAL PATTERN: (A) - The breast(s) demonstrate(s) scattered fibroglandular densities. BI-RADS CATEGORY: (2) - 2 Mammogram [id number] 1 year screening LATERALITY: (B)
== END 2023-01-13 12:28 | disposition home or self-care (01) ==
LOC: DI.N 12:27
DX: Z12.31 Encounter for screening mammogram for malignant neoplasm of breast (principal)

== ENCOUNTER 2023-01-20 08:54 | Outpatient (CLI) | payer MEDICARE, OTHER ==
[2023-01-20 11:44] LABS: BASOPHILS # (AUTO) 0.1 10^3/uL (0.0-0.1); BASOPHILS % (AUTO) 0.7 %; EOSINOPHILS # (AUTO) 0.1 10^3/uL (0.0-0.7); HCT - HEMATOCRIT 45.1 % (37.0-47.0); HGB - HEMOGLOBIN 14.5 g/dL (12.0-16.0); LYMPHOCYTES % (AUTO) 57.3 %; MEAN CORPUSCULAR HEMOGLOBIN 32.2 pg (27.0-31.0); MEAN CORPUSCULAR HGB CONC 32.2 g/dL (32.0-36.0); MEAN CORPUSCULAR VOLUME 100.2 fL (81.0-99.0); MEAN PLATELET VOLUME 11.9 fL (7.9-10.8); MONOCYTES # (AUTO) 0.4 10^3/uL (0.0-1.0); MONOCYTES % (AUTO) 6.2 %; NEUTROPHILS # (AUTO) 2.4 10^3/uL (1.5-6.6); NEUTROPHILS % (AUTO) 34.4 %; PLT - PLATELET COUNT 221 10^3/uL (130-450); RED CELL DISTRIBUTION WIDTH 13.1 % (12.0-15.0); WHITE BLOOD COUNT 6.9 x10^3/uL (4.8-10.8)
[2023-01-20 12:25] LABS: ALBUMIN/GLOBULIN RATIO 1.6 (1.0-2.2); BILIRUBIN,TOTAL 0.3 mg/dL (0.2-1.0); POTASSIUM 4.6 mmol/L (3.5-4.5); TOTAL PROTEIN 6.5 g/dL (6.4-8.9)
[2023-01-20 12:43] LABS: ESTIMATED AVERAGE GLUCOSE 151 mg/dL (70-100); HEMOGLOBIN A1c% 6.9 % (4.27-6.07)
[2023-01-24 23:07] LABS: A/G RATIO 1.3 (0.7-1.7); ALBUMIN 3.6 g/dL (2.9-4.4); ALPHA-1-GLOBULIN 0.2 g/dL (0.0-0.4); ALPHA-2-GLOBULIN 0.8 g/dL (0.4-1.0); GAMMA GLOBULIN 0.9 g/dL (0.4-1.8); GLOBULIN TOTAL 2.8 g/dL (2.2-3.9); IMMUNOGLOBULIN A (IGA) 107 mg/dL (87-352); IMMUNOGLOBULIN G (IGG) 627 mg/dL (586-1602); IMMUNOGLOBULIN M (IGM) 275 mg/dL (26-217); M-SPIKE 0.3 g/dL (Not Observed); PROTEIN TOTAL 6.4 g/dL (6.0-8.5)
== END 2023-01-20 08:55 | disposition home or self-care (01) ==
LOC: LAB.N 08:54
PROVIDERS: ATTEND Internal Medicine
DX: E11.42 Type 2 diabetes mellitus with diabetic polyneuropathy (principal); D47.2 Monoclonal gammopathy
CPT/HCPCS: 36415; 80053; 82784; 83036; 83521; 84155; 84165; 85025; 86334

== ENCOUNTER 2023-04-11 08:34 | Outpatient (CLI) | payer MEDICARE, OTHER ==
[2023-04-11 12:45] LABS: BASOPHILS % (AUTO) 0.5 %; EOSINOPHILS # (AUTO) 0.1 10^3/uL (0.0-0.7); EOSINOPHILS % (AUTO) 0.9 %; HCT - HEMATOCRIT 45.5 % (37.0-47.0); HGB - HEMOGLOBIN 14.4 g/dL (12.0-16.0); LYMPHOCYTES # (AUTO) 5.2 10^3/uL (1.5-3.5); LYMPHOCYTES % (AUTO) 65.4 %; MEAN CORPUSCULAR HEMOGLOBIN 32.7 pg (27.0-31.0); MEAN CORPUSCULAR HGB CONC 31.6 g/dL (32.0-36.0); MEAN CORPUSCULAR VOLUME 103.4 fL (81.0-99.0); MEAN PLATELET VOLUME 11.5 fL (7.9-10.8); MONOCYTES # (AUTO) 0.6 10^3/uL (0.0-1.0); MONOCYTES % (AUTO) 7.3 %; NEUTROPHILS % (AUTO) 25.4 %; PLT - PLATELET COUNT 253 10^3/uL (130-450); WHITE BLOOD COUNT 7.9 x10^3/uL (4.8-10.8)
[2023-04-11 13:12] LABS: ALBUMIN 4.2 g/dL (3.2-5.5); ALBUMIN/GLOBULIN RATIO 1.8 (1.0-2.2); ALKALINE PHOSPHATASE 61 IU/L (42-121); ALT ALANINE AMINOTRANSFERASE 15 IU/L (10-60); AST ASPARTATE AMINOTRANSFERASE 10 IU/L (10-42); BILIRUBIN,TOTAL 0.3 mg/dL (0.2-1.0); BUN - BLOOD UREA NITROGEN 18 mg/dL (6-20); CARBON DIOXIDE - CO2 31 mmol/L (21-32); CHLORIDE 100 mmol/L (101-111); CHOL/HDL RATIO 3.5 (<4.4); CHOLESTEROL 207 mg/dL; GFR - MDRD 55 (>89); GLUCOSE 157 mg/dL (74-104); HDL CHOLESTEROL 59 mg/dL; LDL CHOLESTEROL,CALCULATED 84 mg/dL; LDL/HDL RATIO 1.4 (<4.4); POTASSIUM 4.5 mmol/L (3.5-4.5); SODIUM 140 mmol/L (135-145); TOTAL PROTEIN 6.6 g/dL (6.4-8.9); TRIGLYCERIDES 318 mg/dL (48-352); VALPROIC ACID (DEPAKOTE) 64.3 ug/mL; VLDL CHOLESTEROL 64 mg/dL
[2023-04-11 13:33] LABS: THYROID STIMULATING HORMONE 5.78 uIU/mL (0.34-5.60)
[2023-04-11 13:42] LABS: SLIDE REVIEW? Indicated
[2023-04-11 14:15] LABS: ESTIMATED AVERAGE GLUCOSE 163 mg/dL (70-100); HEMOGLOBIN A1c% 7.3 % (4.27-6.07)
[2023-04-11 14:26] LABS: PLATELET ESTIMATE, MANUAL NORMAL (130-450,000) (NORMAL); PLATELET MORPHOLOGY NORMAL APPEARANCE (NORMAL); RBC MORPHOLOGY (MULTIPLE) NORMAL APPEARANCE (NORMAL); WBC MORPHOLOGY (MULTIPLE) NORMAL APPEARANCE (NORMAL)
== END 2023-04-11 08:35 | disposition home or self-care (01) ==
LOC: LAB.N 08:34
PROVIDERS: ATTEND Internal Medicine
DX: E11.42 Type 2 diabetes mellitus with diabetic polyneuropathy (principal); E78.5 Hyperlipidemia, unspecified; F31.9 Bipolar disorder, unspecified; E03.9 Hypothyroidism, unspecified
CPT/HCPCS: 36415; 80053; 80061; 80164; 82043; 82570; 83036; 83721; 84439; 84443; 85025

== ENCOUNTER 2023-12-02 09:12 | Outpatient (CLI) | payer MEDICARE, OTHER ==
[2023-12-02 17:54] LABS: BASOPHILS # (AUTO) 0.1 10^3/uL (0.0-0.1); BASOPHILS % (AUTO) 0.8 %; EOSINOPHILS # (AUTO) 0.1 10^3/uL (0.0-0.7); HCT - HEMATOCRIT 45.7 % (37.0-47.0); HGB - HEMOGLOBIN 14.5 g/dL (12.0-16.0); LYMPHOCYTES # (AUTO) 3.5 10^3/uL (1.5-3.5); LYMPHOCYTES % (AUTO) 56.4 %; MEAN CORPUSCULAR HGB CONC 31.7 g/dL (32.0-36.0); MEAN CORPUSCULAR VOLUME 100.9 fL (81.0-99.0); MEAN PLATELET VOLUME 11.8 fL (7.9-10.8); MONOCYTES # (AUTO) 0.4 10^3/uL (0.0-1.0); MONOCYTES % (AUTO) 6.8 %; NEUTROPHILS # (AUTO) 2.1 10^3/uL (1.5-6.6); NEUTROPHILS % (AUTO) 34.7 %; PLT - PLATELET COUNT 219 10^3/uL (130-450); RED BLOOD COUNT 4.53 10^6/uL (4.20-5.40); RED CELL DISTRIBUTION WIDTH 13.1 % (12.0-15.0); WHITE BLOOD COUNT 6.2 x10^3/uL (4.8-10.8)
[2023-12-02 19:25] LABS: ALBUMIN 4.3 g/dL (3.2-5.5); ALBUMIN/GLOBULIN RATIO 1.7 (1.0-2.2); BILIRUBIN,TOTAL 0.4 mg/dL (0.2-1.0); CALCIUM 10.1 mg/dL (8.5-10.3); CREATININE 0.9 mg/dL (0.6-1.3); TOTAL PROTEIN 6.8 g/dL (6.4-8.9)
[2023-12-02 19:34] LABS: THYROID STIMULATING HORMONE 1.25 uIU/mL (0.34-5.60)
[2023-12-02 20:26] LABS: ESTIMATED AVERAGE GLUCOSE 163 mg/dL (70-100); HEMOGLOBIN A1c% 7.3 % (4.27-6.07)
== END 2023-12-02 09:13 | disposition home or self-care (01) ==
LOC: LAB.N 09:12
PROVIDERS: ATTEND Internal Medicine
DX: E11.42 Type 2 diabetes mellitus with diabetic polyneuropathy (principal); E53.8 Deficiency of other specified B group vitamins; E03.9 Hypothyroidism, unspecified; I10 Essential (primary) hypertension
CPT/HCPCS: 36415; 80053; 82607; 83036; 84443; 85025

== ENCOUNTER 2024-01-11 15:35 | Emergency (ER) | payer MEDICARE, OTHER ==
--- NOTE | 2024-01-11 15:40 | ED Physician Documentation ---
PD HPI Fall - Stated complaint Stated Complaint: FALL - History obtained from History obtained from: Patient - History of Present Illness Mechanism of injury: Lost balance Fall distance: Sitting position Where injury occurred: Other (daughter's house bathroom.Patient states she was at her daughter's house going to the bathroom. It is a shorter toilet so the patient had difficulty getting up loss of balance forward and landed on hands and knees, striking her forehead on the wall. Pain in her head worse today. Pain wrist/knee) Timing - onset: Last night Injury(ies) location: Head, Right Lower Extremity (anterior knee), Right Hand (wrist), Left Hand (wrist/hand) Quality of pain: Pain, Throbbing, Aching Associated symptoms: Other (headache at time that has worsened into today). No: LOC, AMS, Weakness, Paresthesias Review of Systems Constitutional: denies: Fever, Chills GI: reports: Nausea, Diarrhea (the past 2-3 days, improving). denies: Vomiting PD PAST MEDICAL HISTORY - Past Medical History Cardiovascular: High cholesterol Respiratory: Asthma, Sleep apnea Neuro: Tremors, Other Endocrine/Autoimmune: Type 2 diabetes, HyPOthyroidism GI: Chronic constipation : None HEENT: None Psych: Depression, Bipolar disorder, Other Musculoskeletal: Osteoarthritis, Chronic back pain, Other Derm: Other - Past Surgical History Ortho: Other HEENT: Tonsil/Adenoidectomy - Present Medications Home Medications: Ambulatory Orders Medication Instructions Recorded Confirmed Dulaglutide [Trulicity] 3 mg IM Q7D 02/08/18 08/17/22 Levothyroxine [Synthroid] 1 tab ORAL DAILY 02/08/18 08/17/22 Multivitamin [Multiple Vitamins] 1 tab ORAL DAILY 02/08/18 08/17/22 Simvastatin 1 tab ORAL DAILY 02/08/18 08/17/22 metFORMIN [Glucophage] 2 tab ORAL DAILY 02/08/18 08/17/22 Divalproex [Jesus Dumont] 4 - 5 tab PO BID 03/23/21 08/17/22 Buspirone HCl 1 tab PO BID 07/16/22 08/17/22 Meloxicam [Mobic] 1 tab PO DAILY 07/16/22 08/17/22 Quetiapine Fumarate [Seroquel] 3 tab PO HS 07/16/22 08/17/22 Ramipril [Altace] 1 cap PO DAILY 07/16/22 08/17/22 buPROPion HCL [Bupropion Xl] 1 tab PO DAILY 07/16/22 08/17/22 buPROPion HCL [Wellbutrin Xl] 1 tab PO DAILY 07/16/22 08/17/22 Acetaminophen [Tylenol] 1,000 mg PO Q8HR 10 Days #30 tab 07/18/22 08/17/22 Docusate Sodium 100Mg Capsule 100 mg PO DAILY 30 Days #30 cap 07/18/22 08/17/22 [Colace 100Mg Capsule] Famotidine [Pepcid] 20 mg PO BID 30 Days #60 tab 07/18/22 08/17/22 Gabapentin [Neurontin] 300 mg PO Q8HR 10 Days #30 cap 07/18/22 08/17/22 oxyCODONE [Roxicodone] 10 mg PO Q4HR PRN 5 Days #10 tab 07/18/22 08/17/22 polyethylene glycoL 3350 [Miralax] 17 gm PO DAILY PRN 7 Days #7 packet 07/18/22 08/17/22 oxyCODONE [Roxicodone] 5 mg PO Q4-6H #30 tablet 07/19/22 08/17/22 oxyCODONE [Roxicodone] 5 mg PO Q4-6H #30 tablet 07/20/22 08/17/22 Oxycodone HCl/Acetaminophen 1 each PO Q6H PRN #18 tablet 01/11/24 [Percocet 5-325 mg Tablet] - Allergies Allergies/Adverse Reactions: Allergies Allergy/AdvReac Type Severity Reaction Status Date / Time acetaminophen [From Vicodin] Allergy Rash Verified 01/11/24 15:47 azidocillin Allergy Nausea Verified 01/11/24 15:47 hydrocodone [From Vicodin] Allergy Rash Verified 01/11/24 15:47 meperidine [From Demerol] Allergy Respiratory Verified 01/11/24 15:47 Penicillins Allergy Nausea Verified 01/11/24 15:47 Sulfa (Sulfonamide Allergy Hives Verified 01/11/24 15:47 Antibiotics) erythromycin base AdvReac Nausea Verified 01/11/24 15:47 - Social History Smoking Status: Former smoker PD ED PE NORMAL - Vitals Vital signs reviewed: Yes - General General: Alert and oriented X 3, No acute distress, Well developed/nourished, Other (forehead brusiing and swelling right side.) - Neck Neck: Supple, no meningeal sign, No bony TTP, No adenopathy - Cardiac Cardiac: RRR, No murmur - Respiratory Respiratory: No respiratory distress, Clear bilaterally, Other (no chestwall tenderness) - Abdomen Abdomen: Soft, Non tender - Derm Derm: Normal color, Warm and dry - Extremities Extremities: Other (She has bruising on both dorsal aspects of the wrist and hand, more hand on the right. No obvious bony tenderness but moderately decreased range of motion due to discomfort. Right knee has some swelling anteriorly.) - Neuro Neuro: Alert and oriented X 3, No motor deficit, No sensory deficit, Normal speech Eye Opening: Spontaneous Motor: Obeys Commands Verbal: Oriented GCS Score: 15 Results - Vitals Vitals: Vital Signs - 24 hr 01/11/24 15:47 Temperature 36.5 C Heart Rate 68 Respiratory 22 Rate Blood Pressure 104/83 H O2 Saturation 97 Oxygen O2 Source Room air - Labs Labs: Laboratory Tests 01/11/24 16:16 Sodium 138 Potassium 4.6 H Chloride 99 L Carbon Dioxide 30 Anion Gap 9.0 BUN 21 H Creatinine 1.0 Estimated GFR (MDRD) 55 L Glucose 153 H Calcium 10.0 Magnesium 1.5 L Total Bilirubin 0.3 AST 11 ALT 10 Alkaline Phosphatase 49 Total Protein 6.5 Albumin 4.0 Globulin 2.5 Albumin/Globulin Ratio 1.6 Lipase 58 Last Dose Date Not Reportable Last Dose Time Not Reportable Valproic Acid 42.0 PD Medical Decision Making - ED course Complexity details: considered differential (The patient states she was at her daughter's house using the bathroom. The toilet there is shorter and the patient lost balance trying to get up and fell forward striking her head on the wall and landing onto wrists and knees. No injury to the trunk.), d/w patient ED course: The patient feels that it was a balance/mechanical fall getting up from a shorter toilet at her daughter's house and having to adjust balance. This did not work well and she fell forward onto her hands and knees and striking her forehead on the wall. Has some bruising developed into both wrists and the today and increased pain on range of motion. Of particular concern for her is the frontal area pain and swelling and bruising that has progressed into a general headache. Here for evaluation. She had taken some Aleve at home. Tylenol without any effect. She does not take blood thinners. She had had some diarrhea and mild general aches the last several days that is improving. She does not feel this contributed to her fall as she did not feel dizzy or lightheaded prior. However I did feel that we could check some electrolytes and chemistry panel given the recent illness and diarrhea. The results of this showed fairly normal creatinine to 1.0. Her magnesium was slightly low at 1.5. Potassium was good. Blood sugar was in the normal nonfasting range. We did do x-rays of the right knee and both wrists without any noted fractures. Arthritis was noted. CT of the head was done without any signs of intracranial bleeding or swelling. The patient was feeling improved here with a oral oxycodone. She has had previous prescriptions for these intermittently in the recent past but does not take any daily opiates. She does take daily Aleve. Review of pharmacy history has made comfortable with prescribing short course pain medication. Departure - Departure Disposition: 01 Home, Self Care Clinical Impression: Head contusion, Wrist sprain, Knee contusion, Acute diarrhea, Hypomagnesemia Condition: Stable Record reviewed to determine appropriate education?: Yes Instructions: Hypomagnesemia Dc Follow-Up: Carlos Watkins MD [Primary Care Provider] - Prescriptions: Oxycodone HCl/Acetaminophen [Percocet 5-325 mg Tablet] 1 each PO Q6H PRN #18 tablet PRN Reason: pain Comments: The x-rays of your knee and wrists do not show any fractures. There is arthritis noted in the knee in particular. The bruising obviously will be sore as well and indicates some injury to those areas. The CT of your head does not show any signs of intracranial bleeding swelling or any bony abnormality. You will obviously be sore from the injuries with the bruising and swelling. Activity as tolerated. Continue with your typical Aleve dosing twice daily. Continue your other usual medicines. To that add Tylenol/acetaminophen 650 mg 4 times daily for pain or oxycodone/acetaminophen if needed for worse pain. I would expect to need the stronger pain medicine just for the first few days and then to be able to rely on Tylenol and Aleve. Recheck if not improving well and that reasonable timeframe. With your recent diarrhea, it did cause presumably related to that a slightly low magnesium level. Your other electrolytes are good. I would go for some potassium containing foods in particular over the next week or even a daily supplement for a week or so. I do not think he necessarily need prolonged supplementation. I sent your prescriptions to your preferred pharmacy. I am prescribing a short course of narcotic pain medication for you. These are potentially dangerous and addictive medications that should be used carefully. These medications may constipate you. Take an [id number] stool softener such as docusate twice daily with plenty of water while taking these medications. If you go 24 hours without a bowel movement, take [id number] MiraLAX, per package instructions. Do not drink or drive while taking these medications. If you received narcotic or sedating medications while in the emergency department do not drive for 24 hours. Store this medication in a safe, secure place and out of reach of children. It is a violation of federal law to give or sell this medication to another person or to use in a manner other than prescribed. The ED will not refill narcotic prescriptions, including prescriptions lost or stolen. You can dispose of unwanted medications at the [facility]'s office or at several pharmacies such as [facility].
[2024-01-11] MEDS: ACETAMINOPHEN 325 MG TABLET PO STA (16:16)
[2024-01-11] MEDS: oxyCODONE 5 MG TABLET PO STA (16:17)
[2024-01-11 16:32] LABS: MAGNESIUM 1.5 mg/dL (1.7-2.3)
[2024-01-11 16:38] LABS: ALBUMIN/GLOBULIN RATIO 1.6 (1.0-2.2); ALKALINE PHOSPHATASE 49 IU/L (42-121); ALT ALANINE AMINOTRANSFERASE 10 IU/L (10-60); AST ASPARTATE AMINOTRANSFERASE 11 IU/L (10-42); BILIRUBIN,TOTAL 0.3 mg/dL (0.2-1.0); BUN - BLOOD UREA NITROGEN 21 mg/dL (6-20); CARBON DIOXIDE - CO2 30 mmol/L (21-32); CHLORIDE 99 mmol/L (101-111); GFR - MDRD 55 (>89); GLUCOSE 153 mg/dL (74-104); LIPASE 58 U/L (11-82); POTASSIUM 4.6 mmol/L (3.5-4.5); SODIUM 138 mmol/L (135-145); TOTAL PROTEIN 6.5 g/dL (6.4-8.9)
--- NOTE | 2024-01-11 16:43 | CT Report ---
PROCEDURE: Head WO INDICATIONS: fall struck head last night TECHNIQUE: Noncontrast 4.5 mm thick angled axial sections acquired from the foramen magnum to the vertex. For r adiation dose reduction, the following was used: automated exposure control, adjustment of mA and/or kV according to patient size. COMPARISON: None FINDINGS: Image quality: Excellent. CSF spaces: Basal cisterns are patent. No extra-axial fluid collections. Ventricles are normal in size and shape. Brain: No midline shift. No intracranial masses or hemorrhage. Rodriguez-white matter interface is norm al. Skull and face: Calvarium and visualized facial bones are intact, without suspicious lesions. Sinuses: Visualized sinuses and mastoids are clear. IMPRESSION: No acute intracranial pathology. Reviewed by: Liban Brooks MD on 01/11/2024 4:42 PM PDT Approved by: Liban Brooks MD on 01/11/2024 4:42 PM PDT Station ID: [id number]
--- NOTE | 2024-01-11 16:45 | XRAY Report ---
PROCEDURE: Wrist 3+V BL INDICATIONS: fall onto knees/wrists TECHNIQUE: 4 views of the wrists were acquired. COMPARISON: None. FINDINGS: Bones: No fractures or dislocations. No suspicious bony lesions. Soft tissues: No suspicious soft tissue calcifications or masses. IMPRESSION: No acute bony abnormality. Reviewed by: Blayne Milton MD on 01/11/2024 4:44 PM PDT Approved by: Blayne Milton MD on 01/11/2024 4:44 PM PDT Station ID: [id number]
--- NOTE | 2024-01-11 16:45 | XRAY Report ---
PROCEDURE: Knee 3V RT INDICATIONS: fall onto knees TECHNIQUE: 3 views of the knee(s) were acquired. COMPARISON: None. FINDINGS: Bones: No fractures or dislocations. No suspicious bony lesions. Tricompartmental joint space candi rowing with associated osteophytosis. Subchondral cystic change about the medial tibiofemoral compart ment. Soft tissues: No knee joint effusion. No suspicious soft tissue calcifications or masses. IMPRESSION: No acute bony abnormality. No significant knee joint effusion. Moderate to severe tricompartmental osteoarthritis. Kellgren-Jose scale of osteoarthritis: 2-3. Reviewed by: Blayne Milton MD on 01/11/2024 4:43 PM PDT Approved by: Blayne Milton MD on 01/11/2024 4:43 PM PDT Station ID: [id number]
[2024-01-11 18:00] VITALS: BP 151/64; O2SAT 100
== END 2024-01-11 18:00 | disposition home or self-care (01) ==
LOC: ED 15:35
DX: S63.501A Unspecified sprain of right wrist, initial encounter (principal); S63.502A Unspecified sprain of left wrist, initial encounter; S00.83XA Contusion of other part of head, initial encounter; S80.01XA Contusion of right knee, initial encounter; S60.212A Contusion of left wrist, initial encounter; S60.211A Contusion of right wrist, initial encounter; W18.12XA Fall from or off toilet with subsequent striking against object, initial encounter; Y92.002 Bathroom of unspecified non-institutional (private) residence as the place of occurrence of the external cause; R19.7 Diarrhea, unspecified; E83.42 Hypomagnesemia; E78.00 Pure hypercholesterolemia, unspecified; G47.30 Sleep apnea, unspecified; E11.9 Type 2 diabetes mellitus without complications; E03.9 Hypothyroidism, unspecified; Z79.84 Long term (current) use of oral hypoglycemic drugs; Z79.899 Other long term (current) drug therapy
CPT/HCPCS: 36415; 70450; 73110; 73562; 80053; 80164; 83690; 83735; 99284; A9270